=== PATIENT | female | born 1930 | race Caucasian/White ===

== ENCOUNTER 2016-11-27 11:30 | Inpatient (IN) | payer MEDICARE, BC ==
[~2016-11-27] VITALS: Ht 152.4 cm; Wt 54.4 kg
--- NOTE | ~2016-11-27 | DS ---
PATIENT'S NAME: ROBERT PERALTA [facility] AGE: 86 Y [address] ROOM: [id number] [place], [place] [address] LOCATION: [facility] ADMIT DATE: 11/27/2016 Discharge Summary DISCHARGE DATE: 12/05/2016 FAMILY PHYSICIAN: Evelyn Lira MD ATTENDING PHYSICIAN: Nav Conrad FINAL DIAGNOSES: 1. Right femoral neck fracture, status post right hip hemiarthroplasty. 2. Hypertension. 3. Hypothyroidism. 4. Dyslipidemia. 5. Atrial fibrillation with rapid ventricular response. 6. Left posterior cerebral artery infarct. 7. Acute blood loss anemia. 8. Unstable gait. Please see the history and physical dictated by Dr. Conrad for details of admission. In short, the patient had a fall landing on her right hip. EMS did take her to the [facility] and there they found that she had a right femoral neck fracture. LABORATORY DATA: On admission, sodium 140, discharge 139. Potassium on admission 4.3, got as low as 3.2 and at discharge was 4.1. BUN on admission was 34, discharge 11. Creatinine on admission was 0.9, discharge 0.6. Cholesterol was 112, HDL 34, LDL 63. White blood cell count on admission was 9.2, hemoglobin was 11.6, hematocrit 34.9, and platelet count 171. PTT 24, prothrombin time 10.5, INR of 1. Urinalysis had moderate bacteria on admission. Urine culture was no growth. Hemoglobin on admission was 11.6, got as low as 8.1, and at discharge 8.2. Chest x-ray on admission did not show any acute process. MRI of the brain on December 01 did show acute to subacute left posterior cerebral artery distribution infarct with suspected petechial hemorrhage. She had confluent small vessel ischemic changes. CARDIOVASCULAR DATA: Echocardiogram showed that the LV function was 60% to 65%. Left atrium was mildly dilated. HOSPITAL COURSE: The patient was admitted with the right femoral neck fracture. She was seen and evaluated and felt to be a candidate for surgery. The patient was placed n.p.o. and was initially seen by Dr. Stoll. Dr. Murry did see the patient on the and felt she was stable for surgery, PATIENT'S NAME: ROBERT PERALTA [facility] AGE: 86 Y [address] ROOM: [id number] [place], [place] [address] LOCATION: [facility] ADMIT DATE: 11/27/2016 Discharge Summary DISCHARGE DATE: 12/05/2016 FAMILY PHYSICIAN: Evelyn Lira MD ATTENDING PHYSICIAN: Nav Conrad and she did proceed to surgery. At that time, her blood pressures were monitored. Postoperatively, she was admitted back to the floor without any difficulty. She did initially have some lower blood pressures, and parameters were placed on her blood pressure medicines. She did develop migraine headache postoperatively with some visual changes. She then did go into atrial fibrillation with a rapid ventricular response. She was given IV digoxin. She was given IV fluids to help try and bring her heart rates under better control. An echocardiogram was obtained. Her visual field defects did continue, and an MRI was obtained. The MRI did show subacute/acute posterior cerebral artery infarction. She was seen by Neurology. Dr. Hopper did see her. Her heart rate did continue to fluctuate. She did require IV amiodarone drip. We also did have to use Cardizem to help control the heart rate. Eventually, the heart rate slowed and did convert to sinus rhythm. The patient was placed on oral beta-blockers as well as oral amiodarone. Adjustments were made in the medications. It was felt that she was stable and could be transferred to rehab. Neurology did feel that she could potentially be started on long-term anticoagulation in 7-10 days. DISCHARGE INSTRUCTIONS: She is to have a regular diet. She is to see Dr. Cheng one month after discharge and Dr. Murry to see 2 weeks postop. The patient is weightbearing as tolerated with hip dislocation precautions. CT scan of the brain is ordered for Friday, December 03, to make sure that there is no worsening of her stroke or any worsening of bleeding. She is to have a Mepilex dressing on. MEDICATIONS: Include: 1. Allopurinol 300 mg daily. 2. Amiodarone 200 mg twice daily. 3. Vitamin C 500 mg daily. 4. Aspirin 81 mg daily, which will stop when Eliquis is started. 5. Lipitor 40 mg daily. 6. Os-Luis 500 mg daily. 7. Vitamin D 400 units daily. 8. Vitamin B12, 500 mcg daily. 9. Lovenox 40 mg subcu for DVT prophylaxis. This will stop when the Eliquis is started. 10. Synthroid 25 mg daily. 11. Vitamin A 10,000 units daily. 12. Vitamin E 400 units daily. 13. Extra Strength Tylenol 500 mg 1-2 every 6 hours. 14. [place] 5/325 one to two every 4 hours as needed. 15. Milk of magnesia 30 mL as needed. 16. Metoprolol 50 mg twice daily. Hold if her heart rate is less than 50 or systolic blood pressure less than 100. 17. Systane eyedrops 1 drop to both eyes twice daily as needed for dry eyes. PATIENT'S NAME: ROBERT PERALTA [facility] AGE: 86 Y [address] ROOM: [address] [address] LOCATION: [facility] ADMIT DATE: 11/27/2016 Discharge Summary DISCHARGE DATE: 12/05/2016 FAMILY PHYSICIAN: Evelyn Lira MD ATTENDING PHYSICIAN: Nav Conrad 18. Eliquis 5 mg twice daily. Starting on December [address] scan on December 07 is stable. PROGNOSIS: Overall prognosis at discharge was good. JACINTO MCCRACKEN MD LAW/modl /[id number] d: 12/05/165 t: 12/11/16 1115, DISCHARGE SUMMARY
--- NOTE | ~2016-11-27 | CON ---
PATIENT'S NAME: ROBERT DE LA CRUZ [facility] AGE: 86 Y [address] ROOM: [id number] [place], [place] [address] LOCATION: [facility] ADMIT DATE: 11/27/2016 Consultation DISCHARGE DATE: FAMILY PHYSICIAN: Evelyn Lira MD ATTENDING PHYSICIAN: Nav Conrad DATE OF CONSULTATION: 12/02/2016 REFERRING PHYSICIAN: VIRGINIA GRANT MD HISTORY OF PRESENT ILLNESS: Ms. De La Cruz is a very pleasant 86-year-old female patient who lives alone in [place], [place]. She says that she was in her usual state of health when she was in her garage and her pet dog was trying to get away and she went to go dive on to the dog to catch her, but she landed squarely on the concrete floor and broke her right femur. The patient was taken to the hospital in [place] and was transferred here for hip fracture surgery. At no time did the patient say that she had a problem with her vision or with weakness of her limbs. She denied any lightheadedness or any focal headache and she denied hitting her head or injuring her neck. X-rays upon workup here revealed a right femoral neck fracture. On the 28 of November under the lead of Dr. Murry, the patient underwent a right hip hemiarthroplasty that was essentially noneventful. The patient did maintain good mentation after the surgery, but it was noted that the patient had a new onset of rapid atrial fibrillation with rapid ventricular rate; and also, she was noted to be a bit hypotensive. The patient was thus started on amiodarone and made some good improvement with her blood pressure management with simple IV fluids. The patient herself denied any palpitations, chest pain, and no dizziness or vomiting 48 hours to the time of my seeing the patient on the . She noted that she did have a bit of visual field deficit on her right visual field. She is an avid reader and was trying to read her newspaper and noticed that she could not follow along the page when she tried to gaze towards the right. She reported that over the past 24 hours there was a dramatic improvement in her vision and she was doing much better. With her vision changes of new- onset, she had a MRI of the brain to rule out any possibility of a sudden stroke and the MRI actually did find evidence for a left COTTON BALL BAGGER posterior cerebral artery territory stroke. This involved clearly the occipital lobe and her visual field was clearly affected on her right due to this left COTTON BALL BAGGER infarct. There was some evidence of extension of this COTTON BALL BAGGER infarct into the temporal region on the left and perhaps a bit of normal punctate hemorrhage that would be seen in most stroke syndrome. Actually, the patient is doing quite well. She says that her vision had been quite poor over short-period of about 12 to 24 hours, but has dramatically improved. She was noted to have a right visual field cut still present on exam, but she says this was greatly improved. She denied any problems with chewing or swallowing. She denied any headaches presently. She denied any facial numbness or limb numbness. She PATIENT'S NAME: ROBERT DE LA CRUZ [facility] AGE: 86 Y [address] ROOM: [address] [address] LOCATION: [facility] ADMIT DATE: 11/27/2016 Consultation DISCHARGE DATE: FAMILY PHYSICIAN: Evelyn Lira MD ATTENDING PHYSICIAN: Nav Conrad denied any weakness to her body. She states that she had been ambulating around during the course of the day and was feeling quite well. I told the patient that we were summoned to go over her history and make some suggestions based upon her now known atrial fibrillation in the setting of a stroke and the possibility that the patient would need anticoagulation. PRIOR MEDICAL HISTORY: She has a history of some mild hypertension, history of gout, for which being she is being maintained on allopurinol chronically, history of chronic low back pain. She denied any history of stroke. She denied any history of heart problems. She admits that she has been having some fatigability and possibly some dyspnea on exertion over the course of the year for which she summoned her primary care doctor to work her up for any arrhythmias, but no arrhythmia was found on her EKG. Hypothyroidism. HOME MEDICATIONS: Included: 1. Aspirin. 2. Lipitor. 3. Metoprolol. 4. Vitamin E. 5. Vitamin A. 6. Allopurinol. 7. Calcium carbonate. 8. Cyanocobalamin. 9. Thyroxine. SOCIAL HISTORY: The patient states that she lives alone. She has 5 cats and a dog. She has a total of 5 children and a history of father with COPD and mother of an unknown cause at the age of 84. She denied any history of smoking or alcohol use. She says that she is quite active. She tries to get out of the home everyday to do walking. She does her own chores such as shopping and her own money management. REVIEW OF SYSTEMS: This is an 86-year-old quite healthy female who denies that she had passed out or had any problems with her vision prior to falling on concrete in her garage. She says this was completely accidental in an effort to grab her dog. She was transferred here from [facility] with evidence of right femur fracture and had surgery here on the . After surgery, the patient developed rapid ventricular rate in association with atrial fibrillation. Very soon after, she developed a right oscar-visual field deficit, that is now improved, but is still present and the patient was unable to read most of the words on her newspaper in her right visual field, but this is now improving. PATIENT'S NAME: ROBERT DE LA CRUZ [facility] AGE: 86 Y [address] ROOM: [id number] [place] [id number] LOCATION: [facility] ADMIT DATE: 11/27/2016 Consultation DISCHARGE DATE: FAMILY PHYSICIAN: Evelyn Lira MD ATTENDING PHYSICIAN: Nav Conrad She denied having any weakness or numbness, any problems with chewing and swallowing. There are no problems with walking. She was found on MRI to have a new-onset of a left COTTON BALL BAGGER infarction likely in the setting of a paroxysmal atrial fibrillation. PHYSICAL EXAMINATION: GENERAL: This is a healthy-appearing 86-year-old female in no acute distress, answered all questions appropriately, she had good insight and good judgment and excellent knowledge of her medical history. VITAL SIGNS: Pulse of 76 and irregular, respiration rate 15, blood pressure 111/55, temperature is 36.7, and her weight is 54 kg. NEUROLOGIC: Cranial nerves 2 through 12 were intact. Her visual call were fine on the left visual field; however, there was a visual field cut on the right-side as the patient gazed about 15 degrees toward the right of her nose and she could not count as she did not have the ability for finger count interpretation. She says that this has surprisingly improved over the past 24 hours. There is no evidence of any pronator drift. She had normal power of the bilateral upper and lower extremities. Normal tone. The patient ambulated for me around the room and did not show any evidence of ataxic gait. Speech was clear and nonslurred. She answers all questions appropriately and she did not demonstrate any aphasia. Reflexes were +2 at the biceps, triceps, brachioradialis, patellar reflexes, and ankle jerk reflexes were intact at +1. She was negative Romberg. IMPRESSION: Ms. De La Cruz is an 86-year-old female patient who after falling on the ground fracturing a right hip and having a successful surgery was noted to have a right field cut. She was subsequently found to have a new stroke into the left posterior cerebral artery territory. Clearly in the setting of new-onset of atrial fibrillation, this is likely the reason the patient had an acute stroke. Most new-onset of atrial fibrillation would not result in a new stroke per se thus I do believe that the patient likely had paroxysmal atrial fibrillation even before coming to this hospital, but it was probably brought out during the surgery, which is not too uncommon. She did report periods of time during the past 8 months that she would have to go to her doctor because she suddenly felt shortness of breath that would come out of the blue. The patient had a workup with her primary care doctor, but no evidence of atrial fibrillation was found, but clearly by history, she had runs of atrial fibrillation I believe. Therefore, this is not a first time event for atrial fibrillation. I do recommend that the patient be placed on anticoagulation. She is at risk for having recurrent strokes. Risks are based upon her advanced age, the known existence of a stroke already, a dilated right atrium that was seen on the echocardiogram, the nature of paroxysmal atrial fibrillation, which is likely a greater risk for embolic strokes. Since the patient just had a recent stroke here in the hospital, there is generally not PATIENT'S NAME: ROBERT DE LA CRUZ [facility] AGE: 86 Y [address] ROOM: [id number] [place], [place] [address] LOCATION: [facility] ADMIT DATE: 11/27/2016 Consultation DISCHARGE DATE: FAMILY PHYSICIAN: Evelyn Lira MD ATTENDING PHYSICIAN: Nav Conrad need to [place] for anticoagulation. The reason for this is embolic strokes would take some time to redevelop thus we would ask that anticoagulation be held for at least 10 days. The maximal hemorrhagic conversion poststroke would usually be in the 7 to 10 day period. The patient will likely be here in our hospital for rehabilitation. I would see the patient on followup and rehab and start the patient on anticoagulation. I would likely recommend a newer anticoagulation medications such as Eliquis or Pradaxa as she is healthy and does not have any renal issues. I believe the patient is making a good recovery already with her visual call and I do not suspect that the patient would be at an increased risk for recurrent stroke over the next few weeks and demand that we start anticoagulation immediately. Again, I will follow up with the patient during her rehabilitation stay here in the hospital. MD KHADRA MOY/billyl /[id number] d: 12/04/16 0048 t: 01/07/17 1520, CONSULTATION REPORT
--- NOTE | ~2016-11-27 | ECHO ---
Transthoracic Echocardiography Report (TTE) Demographics Patient Name ROBERT PERALTA Date of Study 12/01/2016 J Patient Number [id number] Visit Number [id number] Date of 1930 Room Number [id number] Gender Female Number Age 86 year(s) Referring Lul Rodríguez CRNA Shade Cutter Roxana Chopra RD, Physician RVT Physician Interpreting Skylar Bradford Messenger Copy Physician Supervising Ordering Skylar Bradford MD/MLP Physician Nurse Stress Assembler Type Bar And Segment Conclusions Contractility Score Summary Normal Left Ventricular contractility was noted. Summary The estimated left ventricular ejection fraction is 60-65%. Moderately dilated right ventricle. The left atrium is mildly dilated by LA volume index measurement. The right atrium is severely dilated. Mild mitral regurgitation by color Doppler. Mild mitral annular calcification. There is mild pulmonary hypertension. The estimated pulmonary pressure (RVSP) is 45 mmHg. Moderate tricuspid regurgitation by color Doppler. Mild pulmonic valve regurgitation by color Doppler. The pulmonic and aortic valves are not well visualized. Procedure Type of Study TTE procedure:2D Echocardiogram. Procedure Date Date: 12/01/2016 Start: 12:32 PM Study Location: Inpatient Portable Technical Quality: Fair Indications:New onset a-fib. Additional Indications:strok Appropriate Use Criteria: 9 Patient Status: Routine Rhythm: Within normal limits HR: 78 bpm BP: 95/51 mmHg M-Mode/2D Measurements LV Diastolic Dimension: 3.79 cm LV Systolic Dimension: 2.25 cm LV Septum Diastolic: 0.86 cm LV PW Diastolic: 0.78 cm AO Root Dimension: 3.1 cm Cardiac Output: 5.69 l/min AV Cusp Separation: 0.9 cm RV Diastolic Dimension: 3.13 cm LA volume: 80 ml IVC Inspiration: 1.27 cm LVOT: 2.2 cm RV Base: 5.17 cm LVOT VTI: 19.2 cm RV Mid: 2.37 cm LV Stroke volume: 72.95 ml TAPSE: 2.02 cm TDI-S': 14 cm/s Doppler Measurements AV Peak Velocity: 1.85 m/s MV Peak E-Wave: 1.1 m/s AV Peak Gradient: 13.69 mmHg MV Peak A-Wave: 0.8 m/s AV Mean Gradient: 8 mmHg MV E/A Ratio: 1.37 LVOT Peak Velocity: 0.97 m/s MV P1/2t: 47 msec TR Gradient:71.91 mmHg PV Peak Velocity: 0.99 m/s Estimated RAP:3 mmHg PV Peak Gradient: 3.94 mmHg Estimated RVSP: 75 mmHg Estimated PASP: 74.91 mmHg E' Septal Velocity: 0.09 m/s A' Septal Velocity: 0.08 m/s E' Lateral Velocity: 0.1 m/s A' Lateral Velocity: 0.05 m/s MV E/E' Ratio: 7.9 Findings Left Ventricle The estimated left ventricular ejection fraction is 60-65%. Right Ventricle Moderately dilated right ventricle. Left Atrium The left atrium is mildly dilated by LA volume index measurement. Right Atrium The right atrium is severely dilated. Mitral Valve Mild mitral regurgitation by color Doppler. Mild mitral annular calcification. Aortic Valve The aortic valve is moderately sclerotic. Not well visualized Tricuspid Valve There is mild pulmonary hypertension. The estimated pulmonary pressure (RVSP) is 45 mmHg. Moderate tricuspid regurgitation by color Doppler. Pulmonic Valve Mild pulmonic valve regurgitation by color Doppler. The pulmonic valve is not well visualized. Pericardial Effusion No evidence of pericardial effusion. Miscellaneous Visualized portions of the aortic root and ascending aorta appear normal in size. Pleural Effusion No evidence of pleural effusion. Contractility Score LV regional wall motion:(0-Non visualized 1-Normal 2-Hypokinesis 3-Akinesis 4-Dyskinesis 5-Aneurysm) Signature dtt: CHI QUINN dtd: 12/01/16 1232 Physician Self Edit
--- NOTE | ~2016-11-27 | HP ---
PATIENT'S NAME: [facility] AGE: 86 Y [address] ROOM: [id number] [place], [place] [address] LOCATION: G3N ADMIT DATE: 11/27/2016 History & Physical DISCHARGE DATE: FAMILY PHYSICIAN: PHYSICIAN, UNKNOWN ATTENDING PHYSICIAN: Nav Conrad DATE OF SERVICE: CHIEF COMPLAINT: Right hip fracture. HISTORY OF PRESENTING ILLNESS: This 86-year-old white female with previous history of hypertension, hyperlipidemia, and osteoporosis was transferred to [facility] from [place] with hip fracture, which occurred as the result of a fall at her home this morning. Briefly, she had stepped down into her garage shortly after 6:00 a.m. this morning to try to shoo her cat into the house. She lost her balance falling awkwardly onto her right side. She cannot relate exactly how she fell, but is certain that she did not lose consciousness. She landed on her right hip and had pain immediately. She denies hitting her head. There were no other injuries associated with the incident. She was unable to rise to a stand, but did crawl back into her house by scooting on her back and posterior. She was unable to reach the telephone, but a engraving supervisor arrived at around 7:00 a.m., no more than 45 minutes after she fell. EMS services were dispatched, and she was taken to the [facility]. On her arrival there, x-rays demonstrated a right femoral neck fracture. On her arrival here, she complains of "mild" hip pain which was relieved with rest. She states that it is 7-8/10 when she moves. She did get some relief with fentanyl en route to the hospital here. She got morphine in [place], but feels that did not help her much. She denies headache. Denies dizziness or lightheadedness. No chest pain, shortness of breath, or abdominal pain. She has been in good health as of late. She eats and drinks normally. She denies any difficulty with chewing or swallowing. She stools regularly and stooled last yesterday. She voids without any problems. Denies dysuria, urgency, or hematuria. No numbness or tingling in her extremities or any other associated physical or constitutional complaints. ALLERGIES: CRESTOR, INDOCIN, AND SHELLFISH. PAST MEDICAL HISTORY: Illnesses: PATIENT'S NAME: [facility] AGE: 86 Y [address] ROOM: [id number] [place], [place] [address] LOCATION: [facility] ADMIT DATE: 11/27/2016 History & Physical DISCHARGE DATE: FAMILY PHYSICIAN: PHYSICIAN, UNKNOWN ATTENDING PHYSICIAN: Nav Conrad 1. Essential hypertension. 2. Gouty arthritis. 3. Hyperlipidemia. 4. Hypothyroidism. 5. Generalized osteoarthritis. 6. Spinal stenosis with chronic back pain, status post recent lumbar epidural steroid injection. CURRENT MEDICATIONS: 1. Allopurinol 300 mg p.o. daily. 2. Atenolol 50 mg half tablet p.o. daily. 3. Calcium 600/400 one tab p.o. daily. 4. Levothyroxine 25 mcg p.o. daily. 5. Lisinopril 30 mg p.o. daily. FAMILY HISTORY: Significant for COPD in her father. Mother lived to the age of 84 and from "arthritis." SOCIAL HISTORY: She is . She lives in [facility]. She has 5 children, who do not live nearby, but has a grandson who provides some social assistance. She has a very distant past history of smoking tobacco, less than 5 pack years, but has been quit for more than 40 years. She drinks alcohol only occasionally. REVIEW OF SYSTEMS: As per HPI. All other organ systems reviewed and are negative. OBJECTIVE: VITAL SIGNS: Temperature 97.2, pulse 72, respirations 16, blood pressure 117/69. GENERAL: She is frail, not ill-appearing, a little anxious but in no acute distress. SKIN: Supple, pink, warm, and dry. There are no obvious rashes. HEENT: Otherwise, normocephalic. Sclerae are nonicteric. Pupils are equal, round, and reactive to light and accommodation. Extraocular movements appear intact. Nasal turbinates normal in appearance. Oropharynx clear. Mucous membranes are pink and moist. NECK: Supple. No masses or adenopathy. No thyromegaly. No JVD. No carotid bruits are heard. CHEST: Chest wall is symmetrical. HEART: Regular with occasional extrasystoles. There is a grade 1-2/6 systolic ejection murmur. LUNGS: Diminished at the bases. No wheezes or crackles are heard. PATIENT'S NAME: [facility] AGE: 86 Y [address] ROOM: [address] [place], [place] [address] LOCATION: [facility] ADMIT DATE: 11/27/2016 History & Physical DISCHARGE DATE: FAMILY PHYSICIAN: PHYSICIAN, UNKNOWN ATTENDING PHYSICIAN: Nav Conrad ABDOMEN: Soft, nontender. Bowel sounds present. No mass. No splenomegaly. : Not done. RECTAL: Not done. EXTREMITIES: Display no significant clubbing, cyanosis, edema. NEUROLOGIC: She is a little hard of hearing, but there are no focal deficits. LABORATORY AND X-RAY DATA: From Murali, AP pelvis, single view, shows a right femoral neck fracture which appears to be 2-part with proximal displacement of the distal fragment and angulation. ASSESSMENT AND PLAN: 1. Right femoral neck fracture, status post ground-level fall. We will admit to inpatient care. I placed her on the hip pathway. I did discuss the case with Dr. Paris Stoll, Orthopedic Surgery, who reviewed the films. He will evaluate her and discuss operative options with her. She indicated a desire to proceed with operative intervention. We will provide supportive cares and clinical monitoring and symptomatic measures with IV fentanyl for relief of pain. She can have [place] as an alternative if needed. We will use Zofran for relief of nausea. We will get some preliminary laboratory studies including CBC, renal panel, PT, PTT, EKG, and chest x-ray and follow up on those when the results are known. 2. Essential hypertension, appears to be adequately controlled. We will monitor the trend and make adjustments as necessary. 3. Osteoarthritis, generalized with degenerative disk disease and lumbar spinal stenosis. Clinically stable. We will encourage immobilization as soon as feasible. We will manage symptomatically. 4. Hypothyroidism, clinically stable and adequately treated with levothyroxine. 5. Hyperuricemia. Plan to continue with allopurinol. She does not have any evidence for active synovitis. 6. Hyperlipidemia, historically controlled. Plan to continue clinical follow up with her primary care provider. 7. Deep venous thrombosis prophylaxis. We will utilize foot pumps at least until plans for surgery can be delineated. Otherwise, we will plan to follow the VTE protocol. MD EKATERINA NORMAN/anderson PATIENT'S NAME: [facility] AGE: 86 Y [address] ROOM: [place] [address] LOCATION: [facility] ADMIT DATE: 11/27/2016 History & Physical DISCHARGE DATE: FAMILY PHYSICIAN: PHYSICIAN, UNKNOWN ATTENDING PHYSICIAN: Nav Conrad /[id number] D: [id number] T: [id number] HISTORY & PHYSICAL
--- NOTE | ~2016-11-27 | OR ---
PATIENT'S NAME: ROBERT DE LA CRUZ [facility] AGE: 86 Y [address] ROOM: [place] [address] LOCATION: [facility] ADMIT DATE: 11/27/2016 OR/Procedure Report DISCHARGE DATE: FAMILY PHYSICIAN: Evelyn Lira MD ATTENDING PHYSICIAN: Nav Conrad SURGEON: Nabor Murry MD WATCH ASSEMBLY INSTRUCTOR: Dima Stoll PA-C. DATE OF PROCEDURE: 11/28/2016 PREOPERATIVE DIAGNOSIS: Right displaced femoral neck fracture. POSTOPERATIVE DIAGNOSIS: Right displaced femoral neck fracture. PROCEDURES PERFORMED: Right hip hemiarthroplasty. ANESTHESIA: General endotracheal anesthesia. FLUIDS: See Anesthesia report. ESTIMATED BLOOD LOSS: See Anesthesia report. SPECIMENS: None. COMPLICATIONS: None. DISPOSITION: Stable in PACU. COUNTS: All counts were correct. IMPLANTS: Brittany Accolade II right hip hemiarthroplasty, size 3 femur, size 44 outer diameter bipolar component, and 28-mm inner diameter head. INDICATIONS: Ms. De La Cruz is an 86-year-old female, who underwent the noted procedures above. The risks, benefits, and alternatives of pursuing a surgical intervention were discussed with the patient in detail. The patient elected to proceed with surgery. Informed consent was obtained. Anesthesia was consulted for their perioperative evaluation of the patient. I marked the patient's right lower extremity indicating the correct surgical site. OPERATIVE REPORT IN DETAIL: The patient was brought from the holding area to the Operating Room. A time-out was performed. General endotracheal anesthesia was administered. The patient was then positioned on the Stulberg positioners. The right lower extremity was then prepped and draped in a sterile fashion. PATIENT'S NAME: ROBERT DE LA CRUZ [facility] AGE: 86 Y [address] ROOM: [address] [address] LOCATION: [facility] ADMIT DATE: 11/27/2016 OR/Procedure Report DISCHARGE DATE: FAMILY PHYSICIAN: Evelyn Lira MD ATTENDING PHYSICIAN: Nav Conrad I then turned my attention to the right hip. I began with a posterior incision to the hip. The skin incision was carried through skin, subcutaneous tissue, and fascia down to the short external rotators. I used a Bovie electrocautery device to remove them. I then made the femoral neck cut using a saw. I then turned my attention to the hip joint. Using a corkscrew, I removed the femoral head. This was subsequently sized. I then began with a femoral canal finder to introduce an open intramedullary canal. I then broached sequentially up to a size 3 broach. I then trialed to a size 3 broach. A standard offset head and 45-mm outer diameter bipolar was used. The hip was taken through range of motion and deemed stable. All the trial componentry was removed. The final componentry was implanted into the joint, and the hip was surgically re-located. It was taken through range of motion. The hip range of motion was zero to approximately 140 degrees, with approximately 60 degrees of internal rotation prior to dislocation. The leg lengths measured were appropriate. The wound was then copiously irrigated with normal sterile saline solution via pulsatile lavage. I repaired the short external rotators and posterior capsule to the posterior aspect of the greater trochanter and bony tunnels using Ethibond suture. The hip again was taken through range of motion and found to be stable. I then used a #2 StrataFix barbed suture to approximate the deeper fascia, followed by 0 StrataFix suture to approximate the deeper subcutaneous tissue, followed by 0 Vicryl and 2-0 Vicryl suture to approximate the subcutaneous tissue. Prineo was used to approximate the skin. The patient was then transferred to the operating room table on the stretcher and placed supine. She was subsequently extubated. An abduction pillow was placed between the legs. There were no intraoperative complications noted. Of note, my PA, Dima Stoll PA-C, played an integral role in the intraoperative care of this patient. This included preoperative positioning, intraoperative expert retraction, and closing and dressing functions. IMPRESSION: The patient is status post the noted procedures above. PLAN: The patient will be weightbearing as tolerated with hip flexion PATIENT'S NAME: ROBERT DE LA CRUZ [facility] AGE: 86 Y [address] ROOM: [address] [place] [address] LOCATION: [facility] ADMIT DATE: 11/27/2016 OR/Procedure Report DISCHARGE DATE: FAMILY PHYSICIAN: Evelyn Lira MD ATTENDING PHYSICIAN: Nav Conrad precautions at 90 degrees on the right lower extremity. Physical Therapy and Occupational Therapy will be consulted for early ambulation and prevention of deconditioning. The hospitalist will continue to manage the patient's concomitant medical comorbidities. Postoperative DVT prophylaxis will be in the form of Lovenox. Postoperative pain control will be in the form of Percocet and IV morphine as needed for pain. Postoperative antibiotics will be administered per routine. Intraoperative antibiotics were administered for perioperative prophylaxis. I will continue to monitor the patient closely in the postoperative period. MD JOSE BANKS/modl /[id number] d: 11/29/16 0114 t: 11/29/16 1711, OPERATIVE SUMMARY
--- NOTE | ~2016-11-27 | PUL ---
PATIENT'S NAME: ROBERT PERALTA [facility] AGE: 86 Y [address] ROOM: [address] [address] LOCATION: GICU ADMIT DATE: 11/27/2016 Pulmonary DISCHARGE DATE: 12/05/2016 FAMILY PHYSICIAN: Evelyn Lira MD ATTENDING PHYSICIAN: Nav Conrad NAME OF PROCEDURE: Pulmonary Function Test DATE OF PROCEDURE: December 03, 2016 TECH: LISANDRO Weaver REASON FOR EXAM: Medication usage PROCEDURES PERFORMED: Spirometry with bronchodilator assessment. Measurement of maximum voluntary ventilation. Measurement of lung volumes. Measurement of diffusion capacity. RESULTS: Spirometry shows FVC was 2.28 liters, 126% of predicted. FEV1 was 1.42 liters, 108% of predicted, FEV1/FVC was 62, 86% of predicted. FSF50-89% was 0.64 liters/second, 80% of predicted. Maximum voluntary ventilation was 60 liters/minute, 84% of predicted. Post bronchodilator FVC was 2.43 liters, 135% of predicted. FEV1 was 1.65 liters, 126% of predicted. FEV1/FVC was 68%, 94% of predicted. NAS68-50% was 0.91 liters/second, 112% of predicted. There was a 16% change in FEV1 post bronchodilator. Lung volumes showed total lung capacity was 4.98 liters, 129% of predicted. Functional residual capacity was 3.12 liters, 128% of predicted. Residual volume was 2.63 liters, 150% of predicted. Diffusing capacity not adjusted for hemoglobin was 92% of predicted. The single breath alveolar volume was 3.37 liters, which is a poor estimate on the total lung capacity. PHYSICIAN INTERPRETATION: The flow volume loop pattern is obstructive. This data and a corresponding flow volume are most compatible with mild airflow obstruction, which does respond to an inhaled bronchodilator. There is evidence of mild hyperexpansion and moderate gas trapping. There is no gas transfer impairment. MD CHRISTY CARLTON/aye PATIENT'S NAME: ROBERT PERALTA [facility] AGE: 86 Y [address] ROOM: [address] [address] LOCATION: GICU ADMIT DATE: 11/27/2016 Pulmonary DISCHARGE DATE: 12/05/2016 FAMILY PHYSICIAN: Evelny Lira MD ATTENDING PHYSICIAN: Nav Conrad /[id number] dtt: 12/12/16 1634 , ESTHER PEREZ dtd: 12/10/16 1445
--- NOTE | ~2016-11-27 | CON ---
PATIENT'S NAME: ROBERT PERALTA [facility] AGE: 86 Y [address] ROOM: [place] [address] LOCATION: GICU ADMIT DATE: 11/27/2016 Consultation DISCHARGE DATE: FAMILY PHYSICIAN: Evelyn Lira MD ATTENDING PHYSICIAN: Nav Conrad REFERRING PHYSICIAN: VIRGINIA GRANT MD Consult for Dr. Conrad. This pleasant 86-year-old lady who lives alone with her cat in her home and does have help for cleaning and help for some chores around the house. She is now referred for rehab evaluation, status post falling incident and suffered a right hip displaced fracture, status post hemiarthroplasty on 11/28/2016, details on record. PAST MEDICAL HISTORY: Past history of significance: 1. History of hypertension. 2. Gout with gouty arthritis. 3. Chronic low back pain, status post epidural injection, few. At the present time, she is alert, oriented. Vitals are as follows: Blood pressure 109/56, temperature 98.2, pulse 74, respirations 18. She is 5 feet tall and weighs 54.4 kg. Now, she can follow instructions without any difficulty. NEUROLOGICAL: She is intact and within normal limits. Can move bilateral upper and left lower extremity freely; however, right lower extremity at the hip she has pain and she tries to be careful. Deep tendon reflexes are present and equal throughout. She has good bowel and bladder control. She is at the present time, complaining of minimal pain at rest. She is at the present time with the following medications. 1. Metoprolol. 2. Aspirin. 3. Lipitor. 4. NaCl 0.9%. 5. Vitamin E. 6. Vitamin A. 7. Allopurinol. 8. Calcium carbonate. 9. Cholecalciferol. 10. Cyanocobalamin. PATIENT'S NAME: ROBERT PERLATA [facility] AGE: 86 Y [address] ROOM: [id number] [place], [place] [address] LOCATION: GICU ADMIT DATE: 11/27/2016 Consultation DISCHARGE DATE: FAMILY PHYSICIAN: Evelyn Lira MD ATTENDING PHYSICIAN: Nav Conrad 11. Thyroxine. 12. Fentanyl. 13. Zofran. 14. MOM. 15. Tylenol. 16. [place]. 17. Lovenox. 18. KCl. ASSESSMENT AND PLAN: She can ambulate up to 30 feet with front-wheeled walker slowly and with minimum to moderate assist. I feel this lady will benefit from intensive rehabilitation of about 2 weeks aiming to discharge on modified independence. All the above was explained to her. She verbalized understanding and agreement. Thank you for this referral. MD ANURAG HAN/modl /[id number] d: 12/02/16 1117 t: 12/02/16 1241, CONSULTATION REPORT
--- NOTE | ~2016-11-27 | CON ---
PATIENT'S NAME: ROBERT DE LA CRUZ [facility] AGE: 86 Y [address] ROOM: [id number] [place], [place] [address] LOCATION: [facility] ADMIT DATE: 11/27/2016 Consultation DISCHARGE DATE: FAMILY PHYSICIAN: Evelyn Lira MD ATTENDING PHYSICIAN: Nav Conrad REFERRING PHYSICIAN: VIRGINIA GRANT MD REASON FOR CONSULT: Atrial fibrillation with rapid ventricular rate, hypotension. HISTORY OF PRESENT ILLNESS: Ms. De La Cruz is a pleasant, 86-year-old female with previous history of hypertension, hyperlipidemia, and osteoporosis who was transferred initially from [facility] with hip fracture for higher level of care. According to the patient, she was trying to prevent her cat from going out of the garage. She was trying to catch her, and in the process, she fell, and she could not get up. She also developed pain in the right hip. She crawled back into the house, and subsequently her cleaning lady came around 7 a.m., and she called 911, and she was taken to [facility] where she was found to have fracture of right femoral neck. The patient denied any loss of consciousness. The patient denied any palpitations. Subsequently, she had surgery for right femoral neck fracture. Since the time of surgery, the patient stated that she has noticed diminishment of vision on the left side. She also complained of feeling as if shadows were floating when she watches TV, and she is not able to read. Today, she was found to be in atrial fibrillation with rapid ventricular rate with hypotension. Her blood pressure improved following IV fluids. The patient denied any palpitations. No history of chest pain. No history of loss of consciousness. Cardiology was consulted in view of atrial fibrillation with rapid ventricular rate and low blood pressure. REVIEW OF SYSTEMS: The patient complained of altered vision in both eyes as described above. No history of nausea, vomiting, or diarrhea. The patient stated that she has been constipated since the time of surgery. No history of fever. No history of cough or expectoration. She has previous history of migraines. Complained of pain in the right leg which is better since the time of surgery. Review of other systems was essentially negative. PAST MEDICAL HISTORY: Hypertension, migraine, gouty arthritis, hyperlipidemia, hypothyroidism, generalized osteoarthritis, and spinal stenosis. CURRENT MEDICATIONS: As in JUL. SOCIAL HISTORY: PATIENT'S NAME: ROBERT DE LA CRUZ [facility] AGE: 86 Y [address] ROOM: [id number] [place], [place] [address] LOCATION: [facility] ADMIT DATE: 11/27/2016 Consultation DISCHARGE DATE: FAMILY PHYSICIAN: Evelyn Lira MD ATTENDING PHYSICIAN: Nav Conrad The patient lives by herself with 5 cats. FAMILY HISTORY: Her father had COPD, and her mother lived to the age of 84 and from unknown cause. PERSONAL HISTORY: She is a nonsmoker and occasionally has alcoholic beverage. PHYSICAL EXAMINATION: GENERAL: She is awake, alert, and oriented. VITAL SIGNS: Her pulse rate is 110 to 118 beats per minute on monitor, blood pressure is 105/58 mmHg, and respiratory rate 18. HEENT: Her head is atraumatic and normocephalic. Her vision is diminished on the left side. Her oral mucosa is moist. NECK: No significant jugular venous distention is present. CARDIOVASCULAR: S1 and S2 are audible. They are irregular in rate and rhythm. RESPIRATORY: Bilateral vesicular breath sounds are audible. ABDOMEN: Soft and nontender. Bowel sounds are present. EXTREMITIES: Left lower extremity shows no edema. Right lower extremity is in support. NEUROLOGIC: Diminished vision on the left side. The patient is not able to explain her diminished vision very well. She is able to move all 4 extremities. SKIN: Warm and dry. LABORATORY DATA: Sodium 136, potassium 3.7, chloride 104, CO2 of 25, glucose 106, calcium 7.7, BUN 17, and creatinine 0.7. AST 25 and ALT 16. Magnesium 2.2. White blood cell count 5.3; hemoglobin 8.1, her hemoglobin prior to surgery was 11.6; and platelet count 134. EKG done today showed atrial fibrillation with ventricular rate of 121 beats per minute. Nonspecific ST-T wave changes were seen. Her EKG prior to surgery on the showed sinus rhythm at 66 beats per minute. ASSESSMENT AND PLAN: 1. Atrial fibrillation with rapid ventricular rate. The patient received 250 mcg of digoxin. The patient was on atenolol. We will start the patient on low-dose beta blockers depending on her blood pressure and continue to monitor on telemetry. Anticoagulation was considered; however, in view of visual changes, she is undergoing MRI of the brain to look for any evidence of stroke. Also, her hemoglobin has dropped since the time of surgery. Depending on MRI findings, we will consider long-term anticoagulation if no recent acute cerebrovascular accident if okay with Orthopedics as well. We will also obtain 2D echocardiogram to evaluate left ventricular function. PATIENT'S NAME: ROBERT DE LA CRUZ [facility] AGE: 86 Y [address] ROOM: [address] [address] LOCATION: [facility] ADMIT DATE: 11/27/2016 Consultation DISCHARGE DATE: FAMILY PHYSICIAN: Evelyn Lira MD ATTENDING PHYSICIAN: Nav Conrad 2. Hypotension, possibly related to dehydration as well as atrial fibrillation with rapid ventricular rate. Her blood pressure has improved since she was given IV fluids. We will monitor blood pressure. Lisinopril has been discontinued due to low blood pressure. 3. Right hip fracture. Management per Orthopedics. 4. Hypothyroidism. Management per hospitalist team. We will follow the patient along with you. Thank you for allowing us in taking part in the care of this pleasant patient. The plan of care was discussed with Nursing. MD MELISSA LAKHANI/anderson /[id number] d: 12/01/16 1340 t: 12/06/16 1626, CONSULTATION REPORT
--- NOTE | ~2016-11-27 | CON ---
PATIENT'S NAME: ROBERT PERALTA [facility] AGE: 86 Y [address] ROOM: [address] [place], [place] [address] LOCATION: [facility] ADMIT DATE: 11/27/2016 Consultation DISCHARGE DATE: FAMILY PHYSICIAN: PHYSICIAN, UNKNOWN ATTENDING PHYSICIAN: Nav Conrad REFERRING PHYSICIAN: VIRGINIA GRANT MD HISTORY OF PRESENT ILLNESS: Dr. Odin Conrad has requested that I provide an inpatient consultation on this 86-year-old female, transferred here from [place] after she had been diagnosed with a right femoral neck fracture. The patient fell this morning while chasing her cat. She landed on her right hip and was unable to get up because of right hip pain. She "scooted across the floor" to call for help. She denies pain elsewhere as a result of the fall. She denies head trauma or loss of consciousness. She denies history of preexisting pain in the right hip. At baseline, she lives independently. She uses a cane intermittently because of balance (not because of preexisting hip pain). The patient was transported to the [facility] [place] [facility] by ambulance where she was diagnosed with a right femoral neck fracture. MEDICATIONS ON ADMISSION: 1. Levothroid. 2. Tenormin. 3. Zyloprim. 4. Prinivil. 5. Vitamin B12 supplement. 6. Vitamin A supplement. 7. Vitamin C supplement. 8. Vitamin E supplement. 9. Calcium supplement. 10. Potassium supplement. ALLERGIES: CRESTOR, SHELLFISH. ACTIVE MEDICAL PROBLEMS: Hypothyroidism. REVIEW OF SYSTEMS: She denies history of deep venous thrombosis. She denies pain in her other 3 extremities as a result of the fall. Radiographs: I reviewed outside radiographs from [facility] [place]. These demonstrate a displaced right femoral neck fracture. There is no hardware in the right hip. There is no lytic lesion. PATIENT'S NAME: ROBERT PERALTA [facility] AGE: 86 Y [address] ROOM: [id number] [place], [place] [address] LOCATION: [facility] ADMIT DATE: 11/27/2016 Consultation DISCHARGE DATE: FAMILY PHYSICIAN: PHYSICIAN, UNKNOWN ATTENDING PHYSICIAN: Nav Conrad PHYSICAL EXAMINATION: GENERAL: Alert, frail, slender elderly female who appears moderately anxious. She is in no acute distress. EXTREMITIES: The right lower extremity is shortened and slightly externally rotated versus the left. There is pain with passive range of motion of the right hip. There is no pain with passive range of motion of the left hip. There is no swelling or tenderness at either knee. She is able to actively dorsiflex and plantar flex the right ankle (with 3/5 motor strength in both directions). 1+ posterior tibial pulse on the right. There is no calf swelling, tenderness, or peripheral edema in either lower extremity. There are no active skin lesions or masses over the right hip. There is tenderness at the right greater trochanter. RECOMMENDATIONS: I have discussed the operative and nonoperative options. I have recommended hemiarthroplasty. I have discussed the technical aspects of surgery as well as risks and limitations thereof. I have also discussed potential adverse sequelae of the injury itself. We have specifically reviewed risks and implications of infection, deep venous thrombosis, pulmonary embolism, mortality, pneumonia, neurovascular complications, wear, loosening, instability, leg length discrepancy, and potential need for conversion to total hip arthroplasty. The patient has been placed at bedrest. Mechanical DVT prophylaxis and incentive spirometry have been initiated. The patient has been admitted to the hospitalist service. We will proceed with surgery tomorrow morning (pending medical clearance and operating room availability). The patient and her family members understand that her surgery will most likely be performed by Dr. Nabor Murry. All their questions and concerns have been answered to their satisfaction. MD DAVID ARGUELLO/anderson PATIENT'S NAME: ROBERT PERALTA [facility] AGE: 86 Y [address] ROOM: [place] [address] LOCATION: [facility] ADMIT DATE: 11/27/2016 Consultation DISCHARGE DATE: FAMILY PHYSICIAN: PHYSICIAN, UNKNOWN ATTENDING PHYSICIAN: Nav Conrad /[id number] CC: Nav Conrad MD d: 11/28/16 0151 t: 12/13/16 0749, CONSULTATION REPORT
--- NOTE | 2016-11-27 14:34 | NUR ---
Patient is 86 yo female admitted this afternoon from [facility]. Patient lives in [place] by herself. she has 5 children. they all live in 5 different states patient. her closest relative is a grandson that lives in [place]. He was out of town today and 6-8 hours away. he is the one that helps her keep things up around the house she says. patient was taking her trash out through the garage today, her cat was going to get out and she threw herself in front of the cat to keep him in. she was unable to get up, had to crawl inside the house to get help. Patient was taken to the ER in [place] and is transferred here. Patient does have a catheter in place with clear yellow drainage noted. IV is infusing in right forearm without erythema or edema noted at site. Patient is very pleasant. she has 8 rings, 8 bracelets a watch and a pair of earrings. these were all removed by her, placed in a zip lock bag for her grandson to be able to take home with him when he comes to see patient. Education is given as documented. patient denies questions at this time. fall and allergy bracelets are on. red socks are on. pneumatics are on bilat feet. pt jaqueline well. Call light is within reach. denies needs, although she is having the shakes once in a while. denies feeling feverish or chilly. just shakey. Report is given to JASMINA Ahn.
[2016-11-27] MEDS ORDERED: LEVOTHROID (SY25 MCG PO (14:51)
[2016-11-27] MEDS ORDERED: ZYLOPRIM300 MG PO (14:52)
[2016-11-27] MEDS ORDERED: TENORMIN50 MG PO (14:52)
[2016-11-27] MEDS ORDERED: VITAMIN A10000 UNIT PO (14:53)
[2016-11-27] MEDS ORDERED: PRINIVIL (ZESTR20 MG PO (14:53)
[2016-11-27] MEDS ORDERED: VITAMIN B-12500 MCG PO (14:54)
[2016-11-27] MEDS ORDERED: ASCORBIC ACID500 MG PO (14:54)
[2016-11-27] MEDS ORDERED: VITAMIN D-40400 UNIT PO (14:55)
[2016-11-27] MEDS ORDERED: VITAMIN E400 UNI2 PO (14:55)
[2016-11-27] MEDS ORDERED: RED YEAST RICE600 MG PO (14:56)
[2016-11-27] MEDS ORDERED: FISH OIL 1,0001 EACH PO (14:56)
[2016-11-27] MEDS ORDERED: OSCAL500 MG PO (14:56)
[2016-11-27] MEDS ORDERED: POTASSIUM99 M1 PO (14:57)
[2016-11-27 15:35] LABS: BASOPHIL % 0.3 %; EOSINOPHIL % 0.1 %; HEMATOCRIT 34.9 % (30.0-46.0); HEMOGLOBIN 11.6 g/dL (10.0-15.0); IMMATURE GRANULOCYTE % 0.4 %; LYMPHOCYTE % 10.6 %; MCH 32.8 pg (27.0-34.0); MCHC 33.2 gm/dL (32.0-36.5); MCV 98.6 fl (83.0-98.0); MONOCYTE # 0.5 K/uL (0.0-1.0); MONOCYTE % 5.2 %; MPV 9.2 fl (9.4-12.4); NEUTROPHIL # (ANC) 7.7 K/uL (1.8-7.8); NEUTROPHIL % 83.4 %; NRBC % 0 /100WBC (0-0.00); PLATELET COUNT 171 K/uL (150-450); RBC 3.54 M/uL (3.00-5.00); RDW-CV 13.1 % (11.9-14.6); WBC 9.2 K/uL (4.0-11.0)
[2016-11-27 15:45] LABS: PROTIME 10.5 SECONDS (9.8-11.4); PTT 24 SECONDS (25-32)
[2016-11-27 15:50] LABS: ALBUMIN 3.7 gm/dL (3.5-5.0); ANION GAP 12.3 (10.0-19.0); CALCIUM 8.7 mg/dL (8.5-10.5); CREATININE 0.9 mg/dL (0.5-1.1); PHOSPHORUS 3.5 mg/dL (2.5-4.9); POTASSIUM 4.3 mMol/L (3.7-5.1)
[2016-11-27 16:39] LABS: BILIRUBIN URINE NEGATIVE (NEGATIVE); BLOOD URINE 150 /UL (NEGATIVE); COLOR URINE YELLOW (YELLOW); GLUCOSE URINE NEGATIVE (NEGATIVE); KETONE URINE 15 mg/dL (NEGATIVE); LEUKOCYTES URINE 100 /UL (NEGATIVE); NITRITE URINE NEGATIVE (NEGATIVE); PROTEIN URINE 15 mg/dL (NEGATIVE); SPEC GRAVITY URINE 1.025 (1.003-1.035); TURBIDITY URINE CLEAR (CLEAR); UROBILINOGEN URINE NORMAL (NORMAL)
--- NOTE | 2016-11-27 16:48 | NUR ---
Pt admitted from [facility] with fractured Rt hip. Rt leg shortened and rotated inward. Edema of Rt hip. Had MS total 8 mg and fentanyl 100 mcg prior to admit. Little pain when admitted and then up to 5. [place] po at 1600. Pt shivery about 1600 so warm blankets on and helped. Pt eating as missed meals today. Aparicio clear yellow urine. Pt NPO after midnight. IV Rt forearm. Pt not yet seen by Dr Stoll. Pt has a few small scrapes Rt elbow and left knee. History of hypertension/ thyroid disease. Pt is on room air.
[2016-11-27 16:50] LABS: RENAL EPITH URINE NEGATIVE #/HPF (NEGATIVE)
[2016-11-27 16:52] LABS: BACTERIA URINE MODERATE (NEGATIVE); MUCUS URINE 2+ (NEGATIVE)
[2016-11-27 16:54] LABS: HYALINE CAST URINE 0-2 #/LPF (NEGATIVE)
--- NOTE | 2016-11-28 04:02 | NUR ---
Significant Event: Alert/oriented x3. [place] 1 tablet at 2133; Fentanyl 25 mcg IVP at 1836, 2019, 2134, 2318, 0304. Pain is better now from 8+/10 down to more comfortable 7/10. Positioned patient to her left side off her right hip, has refused to reposition since. Bilateral foot pumps. Aparicio patent - 975 mls yellow urine. Normal saline running 30 ml/hr in IV at right posterior forearm. Received phone order from Dr Benton for bolus 500 mls due to BP 93/49, retook after bolus completed - 112/57. NPO since midnight for surgery later today with Dr Castillo. Preop checklist started. Right leg shortened and rotated inward. Edema of right hip. Small scrapes to right elbow and left knee. Room air. Follow up:
--- NOTE | 2016-11-28 05:13 | NUR ---
At 0505, patient reported 0/10 for pain if she doesn't move.
--- NOTE | 2016-11-28 10:10 | NUR ---
Introduced self/role to patient, his grandson Ronni #[phone] and his friend Anita. Patients plan is to go to the [facility]. Her doctor is Evelyn Lira. Will check to see if they will even take over the weekend. Covered transportation options. Explained ambulance and that if it was medically needed we would fill out a form to submit to Medicare but can not guarantee payment. Voiced understanding. Added my name to her marker board. 1020 Called [facility] #[phone] and spoke to Jaimee. Will need to plan for a Friday admission. Faxed her info, surgery today. Placed a note on the chart about Friday discharge, packet started, orders on the chart, informed charge nurse Anabelle. 1310 Spoke to Anabelle with EMS about Friday transfer.
--- NOTE | 2016-11-28 15:41 | NUR ---
Significant Event: PT A&O x3, forgetful. VSS, on room air. Pain issues, fentanly 25mcg given frequently. PT NPO for OR this evening. Repositioned frequently. Mouth swabs offered, refused. Aparicio patent. IV patent. PT unhappy about waiting all day for surgery, family at bedside, upset about wait. Follow up:
[2016-11-29 05:27] LABS: HEMOGLOBIN 8.7 g/dL (10.0-15.0)
[2016-11-29 05:29] LABS: HEMATOCRIT 26.3 % (30.0-46.0)
--- NOTE | 2016-11-29 05:38 | NUR ---
Significant Event:Returned from OR @ 2119 to 3304. In PACU had 50 po, 1200 IV & EBL of 125 ml. For me had 180 po, IV 278 & from the mg 525. Forgetful, but reorients quickly. Has denied the need for pain meds. Did have 1 [place] @ 2100 in PACU & was nauseated for awhile, but no longer is. Has Mepilex dressing to her right hip. Has the pillow abductor in place. Repositions well. Denies any numbness or tingling to lower extremities. Able to move right foot well. IV @ tko.
--- NOTE | 2016-11-29 11:50 | NUR ---
Faxed updates following surgery to [facility]#[phone]
--- NOTE | 2016-11-29 16:03 | NUR ---
Significant Event: PT ALERT BUT FOEGETFUL AT TIMES. UP IN THE ROOM WITH 1 ASSIST. DOES WELL. HAD A MIGRAINE HEADACHE THIS MORNING AND INTO THE AFTERNOON. RESTED WEEL THIS AFTERNOON AND THE HEADACHE IS GONE OF 1600. NORCO AND TYLENOL GIVEN THIS AM. TORADOL ALSO GIVEN. ICE TO HIP. FAMILY IN THE ROOM THIS SHIFT. HICKS CATH REMAIN INTACT. MAY BE DC'D WHEN YOUR READY. Follow up:
--- NOTE | 2016-11-30 04:16 | NUR ---
Significant Event: A/O X 3, FORGETFUL. IV SALINE LOCKS INTACT X 2, FLUSHES. MEPILEX DRSGS RIGHT HIP DRY-INTACT. ICE BAG TO SITE. GAUZE DRSGS LEFT OUTER ANKLE INTACT FROM ABRASED AREA. SY HOSE OFF AT HS, BILATERAL FOOT PUMPS TO FEET. DENIES NUMBNESS OR TINGLING TO LOWER EXTREMITIES. LOW GRADE TEMP 99.6 AND 99.1 ORALLY. ENCOURAGE FLUIDS AND INCENTIVE USAGE. 600-1000 RANGE. LEG CLOUD ARCHITECT BETWEEN KNEES. HICKS CATHETER WAS REMOVED AT 2145 WITH 550ML URINE. AT 0310 2 ASSIST TO COMMODE WBAT GAITBELT-WALKER, VOIDED 200ML URINE. GOOD TOLERANCE UP. HAD NORCO TAB ONE AT 0139 FOR ANTICIPATED PAIN WHEN GOTTEN UP. WHEN NOT MOVING, DENIES PAIN. TENORMIN 25MG NOT GIVEN AT HS BP 102/64, HR 84. PARAMENTORS FOR BP. Follow up:
[2016-11-30 04:50] LABS: HEMATOCRIT 24.2 % (30.0-46.0); HEMOGLOBIN 8.2 g/dL (10.0-15.0)
--- NOTE | 2016-11-30 16:22 | NUR ---
Significant Event: Pt is alert, forgetful. Cooperative. Amb to BR with 1 assist, gaitbelt and walker, slightly unsteady. Sat in chair. Mepilex dressing c/d/i. [place] @ 0850. Foot pumps on. Abductor pillow between knees. Follow up:
[2016-12-01 03:05] LABS: ALBUMIN 2.3 gm/dL (3.5-5.0); ANION GAP 10.7 (10.0-19.0); CALCIUM 7.7 mg/dL (8.5-10.5); CREATININE 0.7 mg/dL (0.5-1.1); MAGNESIUM 2.2 mg/dL (1.8-2.6); POTASSIUM 3.7 mMol/L (3.7-5.1); TOTAL BILIRUBIN 0.4 mg/dL (0.0-1.5); TOTAL PROTEIN 5.4 g/dL (6.0-8.4)
[2016-12-01 05:16] LABS: BASOPHIL % 0.2 %; EOSINOPHIL # 0.1 K/uL (0.0-0.5); EOSINOPHIL % 1.5 %; HEMATOCRIT 23.7 % (30.0-46.0); HEMOGLOBIN 8.1 g/dL (10.0-15.0); IMMATURE GRANULOCYTE % 0.4 %; LYMPHOCYTE # 0.8 K/uL (0.8-4.0); LYMPHOCYTE % 14.6 %; MCHC 34.2 gm/dL (32.0-36.5); MCV 96.7 fl (83.0-98.0); MONOCYTE # 0.5 K/uL (0.0-1.0); MONOCYTE % 9.7 %; MPV 9.2 fl (9.4-12.4); NEUTROPHIL # (ANC) 3.9 K/uL (1.8-7.8); NEUTROPHIL % 73.6 %; NRBC % 0 /100WBC (0-0.00); RDW-CV 12.9 % (11.9-14.6); WBC 5.3 K/uL (4.0-11.0)
[2016-12-01 05:21] LABS: MCH 33.1 pg (27.0-34.0); PLATELET COUNT 134 K/uL (150-450); RBC 2.45 M/uL (3.00-5.00)
--- NOTE | 2016-12-01 05:21 | NUR ---
Significant Event: Night time blood pressure medication held. Later became hypotensive systolically in the 80's and heart rate up to 120's. MD notified EKG and fluids ordered. A-fibb with rapid ventricullar response, lateral ST abnormality. Gave a total of 1 L of NS bolus. Gave Digoxin at 0334. On telemetry. Held all blood pressure medication. Now running NS at 100ml/hr for 1 L then saline lock. On room air. CSM WNL. Dressing is clean, dry and intact. Voids without difficulty. Had a bowel movement. Abductor pillow. [facility] Friday. Follow up:
--- NOTE | 2016-12-01 12:59 | NUR ---
Pt is alert, forgetful @ times. Admitted with fx R) hip on 11/27. Had R) hip hemiarthroplasty on 11/28. CSM WNL. Mepilex dressing to R) hip c/d/i. Hip abductor pillow in place. Last night became hypotensive and tachycardia and went into afib. Had NS IV boluses, po digoxin @ 0334. Hgb 8.1 Has been voiding per bedpan. Last BM 12/01. Has hx migraines. Reported having a migraine postop, now has visual field deficits. Converted to NSR with rates in 70's @ 1110. Had head MRI without contrast. Echo completed. Son in [facility] spoke with Dr Mccarty so he is aware of situation. Dr Sun consulted & examined patient. Pt ID on ASA, lipitor, KCL.
--- NOTE | 2016-12-01 17:04 | NUR ---
Significant Event: PT TRANSFERRED FROM [address] [place] [address] TO ROOM 6227 AT 1330, VIA BED. THE PT LIVES AT HOME BY HERSELF. SHE FELL ON 11/27 AND SUSTAINED A R)HIP FRACTURE. ON 11/28 A R)HIP HEMIARTHROPLASTY WAS DONE. ABOUT 0100 THIS AM ON [address] [place] [address], THE PT WENT INTO A-FIB WITH RATES IN THE 120'S AND SBP'S IN THE 80'S. A LITER BOLUS OF IV FLUIDS WERE GIVEN AND A DOSE OF DIGOXIN. A HEAD MRI WAS DONE ON , WHICH SHOWED A STROKE. AN ECHO WAS ALSO DONE THIS MORNING. SINCE ARRIVAL TO THE FLOOR, PT HAS BEEN ALERT AND ORIENTED X3. FORGETFUL. PERRLA. STATES THAT SHE HAS HAD VISUAL DEFICITS AND A MIGRAINE SINCE SURGERY. BOTH EYES ARE BLURRY/DISTORTED. FOLLOWS COMMANDS. MODERATE STRENGTH IN UPPER EXTREMITIES; BILATERAL LOWER EXTREMITES ARE WEAKER. VOIDS PER BEDPAN. MEPILEX DRESSING TO R)HIP INTACT. IV TO R)OUTER FA INFUSING IV FLUIDS WITHOUT COMPLICATIONS. IV TO L)ARM SALINE LOCKED. HAS DENIED ANY NEED FOR PAIN MEDICATION. FAMILY HAS BEEN AT BEDSIDE MOST OF THE AFTERNOON. Follow up: CONTINUE TO MONITOR
--- NOTE | 2016-12-01 17:17 | NUR ---
ROUTINE CONSULT FOR CVA DIET ED NOTED. WILL COMPLETE APPROPRIATE PRIOR TO DISMISSAL.
--- NOTE | 2016-12-02 04:23 | NUR ---
Significant Event: PATIENT IS ALERT AND ORIENTED X3. FOLLOWS COMMANDS. PERRLA. NIHSS-1 WEAK TO MODERATE STRENGTH. LEFT FOOT HAS CHRONIC N/T. SLIGHT BLURRED VISION. DENIES PAIN UNLESS WHEN ROLLED. SR- 2+ PULSES. ROOM AIR. REGULAR DIET-PASSING FLATUS- LAST BM 12/02-ACTIVE X4. 2A-BEDREST TQ2H. MEPILEX TO RIGHT HIP- C/D/I. ABDUCTOR WEDGE IN PLACE. PIV TO R) FA INFUSING NS AT 75- L) FA SL'D. TAKES PILLS WHOLE WITH WATER. Follow up: [facility].
--- NOTE | 2016-12-02 08:00 | NUR ---
Jaimee from [facility] called. Unsure about transfer today at this point. 0810 Faxed updated to [facility]. [address] [facility] consult. She would rather go to [facility] then [facility]. [address] [facility]. Can accept tomorrow at 0900. Update patient, Dr Mccarty, Charge Nurse Jaimee García at [facility], called off EMS, phoned her grandson Ronni #[phone]. Orders on chart, started a packet and note placed on chart. 1630 Spoke to patients nurse, patient in a-fib may have to postpone discharge. She is calling the doctor, all doctors aware of discharge tomorrow she reports.
--- NOTE | 2016-12-02 11:23 | NUR ---
PT SCREENED D/T LOS. EST NEEDS: 5625-4014 KCALS, 54-65 GM PROTEIN, 1 ML/KCAL FLUIDS. INTAKE IS ADEQUATE. PT NOT APPROPRIATE FOR CVA DIET ED D/T ADVANCED AGE AND WILL BE DISCHARGING TO SNF. NO NUTRITION-RELATED DX IDENTIFIED. WILL ASSIST NEEDED.
--- NOTE | 2016-12-02 15:10 | NUR ---
Significant Event: Patient alert and oriented x3. Pupils 2mm, brisk. Chronic N/T reported to L) foot. Distorted vision reported to both eyes. NIHSS= 2. Patient flipped back into rapid a fib at 1150. notified. Digoxin and lopressor given, rates still rapid several hours later. Amio gtt started per protocol. All other VSS on room air. Voids per commode. Mepilex to R) hip, intact. Vaseline gauze and gauze to L) ankle, intact. Hip abductor pillow in place. IV to L) wrist, saline locked. IV to R) FA infusing amio gtt and NS at TKO. Patient is a 1 assist to get up. Follow up:
--- NOTE | 2016-12-03 04:31 | NUR ---
Significant Event: A0X3. PUPILS 2MM/BRISK. CHRONIC N/T TO L)FOOT. NIHSS=1. PT WAS IN AFIB AT BEGINNING OF SHIFT BUT FLIPPED BACK TO SR/BRADYCARDIA AROUND 0100. AMIODARONE GTT RUNNING IN THE L) WRIST AT 0.5. IV TO R) FA WAS D/C'd BY PATIENT. VOIDS PER COMMODE OR BEDPAN. 1 ASSIST. MEPILEX TO R)HIP. C/D/I. VASELINE GAUZE AND GAUZE TO L)ANKLE, INTACT. HIP ABDUCTOR PILLOW IN PLACE.
[2016-12-03 06:09] LABS: HEMATOCRIT 24.2 % (30.0-46.0); HEMOGLOBIN 8.1 g/dL (10.0-15.0)
--- NOTE | 2016-12-03 08:15 | NUR ---
Called [facility] and spoke to Raquel, patient on drip so not going to [facility] today. Called [facility] and let them know, someone else already had. 0835 Missed call from Vannessa on [facility], will try to take tomorrow. 1025 Followed up with patient. She stated not to bother her family, she will update them.
--- NOTE | 2016-12-03 17:19 | NUR ---
Significant Event: PT A&Ox3, FAC, and NIHSS 1. PT has a slight visual deficit R) peripheral field. CSM WNL except L) LE numbness. CROFT with limited flexion in the R) LE. LS clear on RA. Denies pain throughout the day, but has expressed being tired this afternoon; refuses OT. Currently infusing amioderone gtt at 0.5mg/min. Amioderone PO started today 200mg BID. Metoprolol changed to 25mg PO BID; hold for HR<50 and SBP<100. Follow up: Plan for tomorrow BMP, EKG, and possible transfer to [facility].
--- NOTE | 2016-12-04 04:27 | NUR ---
Significant Event: ALERT/ORIENTED X3. GENERALIZED WEAKNESS. NIHSS 1 FOR RIGHT SIDED VISUAL FIELD DEFICIT. MOVES RIGHT LEG TO COMMAND WITH SLIGHT WEAKNESS, WIGGLES TOES, DORSIFLEXION, PLANTAR FLEXION. 2+ EDEMA TO R LEG. AMIODORONE GTT D/C'D AT BEGINNING OF SHIFT. CONVERTED TO AFIB SHORTLY AFTER, CARDIZEM GTT STARTED. CURRENTLY AT 5MG/HR. HR 70S-90S, SBP 100S-110S. 96-97% RA, LUNGS CLEAR. HIP ABDUCTOR PILLOW. NO BM, VOIDS PER BEDPAN. NPO SINCE MIDNIGHT. Follow up:
[2016-12-04 06:19] LABS: ANION GAP 11.2 (10.0-19.0); CALCIUM 8.1 mg/dL (8.5-10.5); CREATININE 0.6 mg/dL (0.5-1.1); POTASSIUM 3.2 mMol/L (3.7-5.1)
--- NOTE | 2016-12-04 13:36 | NUR ---
Significant Event:PT IS AAOX3. NIHSS 1 DUE TO R) VISION. HAS CHRONIC NUMBNESS AND TINLING TO LEFT LEG. EQUAL STRENGTH IN UPPER EXT. CLEAR LUNG SOUNDS ON RA. +1 EDEMA TO R) LEG. ACTIVE BS. UP 1A GB WALKER. DRSG TO R) HIP. L) FOREARM RED AND HARD FROM IV INFILTRATE. R) FA IV SL'D. CONVERTED INTO AFIB AT 1209. INCREASE FREQUENCY OF METOPROLOL. CONVERTED TO NSR AT 1325. PT EXPERIENCED NO SYMPTOMS. Follow up:[facility] TOMORROW
--- NOTE | 2016-12-05 03:57 | NUR ---
Significant Event: A/Ox3. Denies N/T. Right lower extremity slightly weaker. Stroke Scale 1. In Sinus rhythm entire shift. SBPs in 100s-120s. Heart rate 50s-60s. Afebrile. Lungs clear an diminished on room air. Turned off Cardizeme at 0530 on 12/04/16. In Sinus rhythm since 1330 on . Mepilex dressing to right hip. Left wrist IV saline locked. Hip abductor on when in bed. Follow up:[facility] today?
[2016-12-05 05:32] LABS: HEMATOCRIT 25.3 % (30.0-46.0); HEMOGLOBIN 8.2 g/dL (10.0-15.0)
[2016-12-05 05:48] LABS: ANION GAP 7.1 (10.0-19.0); CALCIUM 8.2 mg/dL (8.5-10.5); CREATININE 0.6 mg/dL (0.5-1.1); POTASSIUM 4.1 mMol/L (3.7-5.1)
--- NOTE | 2016-12-05 08:15 | NUR ---
Spoke to [facility] ORTIZ and [facility]ERNON about discharging today. No needs from me.
--- NOTE | 2016-12-05 08:27 | NUR ---
Significant Event: 86 year old female. Full code. multiple allergies. Admitted to [facility] on 11/27 s/p fall at home. Lives in [facility] alone. Fall resulted in right hip fx. Surgery on 11/[address] goncalves. a/o x 3. denies pain. mepilex dsg to right hip C/D/I. trace edema/PPP. denies numbness/tingling. Did have some new onset episodes of afib post surgery starting 01/01 and is now in normal sinus rhythm (was sinus diego last night with HR of 54) taking metoprolol and amiodarone. takes meds whole. regular diet. WBAT. Ambulates with walker/gait belt and one assist. when patient fell at home she did end up with an abrasion/red area to left anterior ankle. Allevyn applied this am and can be removed in 3 days and reassessed for need for dsg. Also on 01/01 stroke was diagosed with worsening visual deficit resulting. NIHSS=1 at this time.
== END 2016-12-05 11:18 | DRG 469 ==
LOC: G3N 13:34 → GICU 12-01 13:51
PROVIDERS: Internal Medicine; Internal Medicine Interventional Cardiology; Nurse Practitioner Family; Orthopaedic Surgery Adult Reconstructive Orthopaedic Surgery; ADMIT Family Medicine
PROC: 0SRR01Z Replacement of Right Hip Joint, Femoral Surface with Metal Synthetic Substitute, Open Approach (ICD-10-PCS; principal; 2016-11-28)
PROC: B246ZZZ Ultrasonography of Right and Left Heart (ICD-10-PCS; 2016-12-01)
DX: S72.001A Fracture of unspecified part of neck of right femur, initial encounter for closed fracture (principal); I63.532 Cerebral infarction due to unspecified occlusion or stenosis of left posterior cerebral artery; I48.0 Paroxysmal atrial fibrillation; D62 Acute posthemorrhagic anemia; E03.9 Hypothyroidism, unspecified; G43.909 Migraine, unspecified, not intractable, without status migrainosus; I10 Essential (primary) hypertension; E78.5 Hyperlipidemia, unspecified; E79.0 Hyperuricemia without signs of inflammatory arthritis and tophaceous disease; M15.9 Polyosteoarthritis, unspecified; M48.06 Spinal stenosis, lumbar region; M81.0 Age-related osteoporosis without current pathological fracture; W19.XXXA Unspecified fall, initial encounter
CPT/HCPCS: A9270; C1776; J0282; J0690; J1160; J1650; J1885; J2001; J2250; J2405; J3010; J7030; J7040; J7050; J7060

== ENCOUNTER 2016-12-05 11:19 | Inpatient (IN) | payer MEDICARE, BC ==
[~2016-12-05] VITALS: Ht 152.4 cm; Wt 60.4 kg
--- NOTE | ~2016-12-05 | CON ---
PATIENT'S NAME: MARTA PERALTA [facility] AGE: 86 Y [address] ROOM: [address] [place], [place] [address] LOCATION: [facility] ADMIT DATE: 12/05/2016 Consultation DISCHARGE DATE: 12/20/2016 FAMILY PHYSICIAN: Evelyn Lira MD ATTENDING PHYSICIAN: Jd Farias DATE OF CONSULTATION: 12/17/2016 REFERRING PHYSICIAN: Bryson Herman MD TEAM MEMBERS REPORTING: Dr. Farias; Vannessa Altamirano, social organization professor; inpatient rehab nursing staff; Etta Zavala, PT; Karina Manley, PT; Joann Roque, OT; Shara Jacome, Speech Therapy; Jessie Drake, therapeutic rec; and sister Kath Aguilera, Pastoral Care. CURRENT STATUS: Marta is an 86-year-old woman admitted to our inpatient rehab unit following a right hip fracture. After surgery for her right hip fracture, she was noted to have a stroke. The patient is continent of bowel and bladder. No skin issues. Incisions are healing nicely. Takes Smilax twice a day. The patient is on a regular diet, currently at low nutritional risk. She can complete all of her transfers at standby. She can ambulate 150 feet at standby and she can climb four stairs at standby. She does need cues. The patient can dress her upper and lower body at standby; grooming, standby; bathing, minimal assistance; toilet transfer, standby; toileting, standby; shower transfers, contact guard assistance. Home management tasks are currently at standby assistance. The patient does have overall poor safety awareness. She has met 3/13 long-term OT goals. The patient's car transfers are currently at standby assistance. She does have hip precautions. The patient is not active in taoism, planning to do family training with daughter who is going to be staying with her. DISCHARGE PLAN: The patient is receiving 3 hours of PT, OT Friday through Friday. The patient has daily rehab, nursing, and physiatry involvement as well as therapeutic recreational services. The patient has shown functional improvement and is progressing. Please see her plan of care for specific goals. Plan is for patient to discharge on Tuesday, December 20, 2016. Plan is for the patient to return to home with her daughter in [place], [place]. The patient will have outpatient therapy services. VANNESSA ALTAMIRANO FOR JD FARIAS MD PATIENT'S NAME: MARTA PERALTA [facility] AGE: 86 Y [address] ROOM: [address] [address] LOCATION: [facility] ADMIT DATE: 12/05/2016 Consultation DISCHARGE DATE: 12/20/2016 FAMILY PHYSICIAN: Evelyn Lira MD ATTENDING PHYSICIAN: Jd Farias TD/billyl /[id number] d: 12/31/16 0010 t: 01/13/17 1129, CONSULTATION REPORT
--- NOTE | ~2016-12-05 | CON ---
PATIENT'S NAME: MARTA DE LA CRUZ [facility] AGE: 86 Y [address] ROOM: [address] [place], [place] [address] LOCATION: [facility] ADMIT DATE: 12/05/2016 Consultation DISCHARGE DATE: 12/20/2016 FAMILY PHYSICIAN: Evelyn Lira MD ATTENDING PHYSICIAN: Jd Farias DATE OF CONSULTATION: 12/10/2016 REFERRING PHYSICIAN: Bryson Herman MD TEAM MEMBERS REPORTING: Dr. Farias; Vannessa Altamirano, social director; inpatient rehab nursing staff; Etta Zavala, PT; Karina Manley, PT; Joann Roque, OT; Shara Jacome, Speech Therapy; Jessie Drake, therapeutic rec; and sister Kath Aguilera, [facility] Care. CURRENT STATUS: Marta De La Cruz is an 86-year-old woman, admitted to our inpatient rehab unit on December 05, 2016, following a right hip fracture and a CVA that was noted following the right hip fracture repair. The patient is currently continent of bowel and bladder. She has dressings to her right hip. She is on a regular diet. Currently at low nutritional risk. She can transfer sit to supine and supine to sit at standby; sit to stand and stand to sit, standby assistance; bed to chair and chair to bed, contact guard assistance. She can walk 150 feet with a front-wheeled walker at contact guard assistance. She can climb 4 stairs with 2 railings at contact guard assistance and cues. Her goals have been set for standby assistance to modified independence. She can dress her upper and lower body at standby; grooming, standby; bathing, minimal assistance; toilet transfers, standby assistance; toileting, standby assistance; shower transfers, contact guard assistance; feeding, standby assistance. Her goals have been set for modified independence for OT. Comprehension and language expression are mod I. Memory and problem solving, mod I. Car transfers have not been done yet. The patient has not been active in her quaker. DISCHARGE PLAN: The patient is receiving 3 hours of PT, OT, and speech Friday through Friday. The patient has daily rehab, nursing, and physiatry involvement as well as therapeutic rec services. The patient has shown functional improvement and is progressing. Please see her plan of care for specific goals. Plan is for patient to discharge in approximately 7 days. Plan is for patient to return to home. The patient's daughter plans to come to stay with her for a while to transition her back to home. PATIENT'S NAME: MARTA DE LA CRUZ [facility] AGE: 86 Y [address] ROOM: [place] [address] LOCATION: [facility] ADMIT DATE: 12/05/2016 Consultation DISCHARGE DATE: 12/20/2016 FAMILY PHYSICIAN: Evelyn Lira MD ATTENDING PHYSICIAN: Jd Farias VANNESSA ALTAMIRANO FOR JD FARIAS MD TD/modl /[id number] d: 12/30/16 2345 t: 01/13/17 1127, CONSULTATION REPORT
--- NOTE | ~2016-12-05 | HP ---
PATIENT'S NAME: ROBERT PERALTA [facility] AGE: 86 Y [address] ROOM: [place] [address] LOCATION: [facility] ADMIT DATE: 12/05/2016 History & Physical DISCHARGE DATE: FAMILY PHYSICIAN: Evelyn Lira MD ATTENDING PHYSICIAN: Jd Hopper DATE OF SERVICE: HISTORY OF PRESENT ILLNESS: This pleasant 86-year-old lady is admitted to rehab unit at [facility] on 12/05/2016. 1. Unstable gait. 2. Dependent in activities of daily self-care. 3. Status post right hip fracture. 4. Right displaced femoral neck fracture for which she underwent right hip hemiarthroplasty on 11/28/2016. This was secondary to a falling incident when her pet tripped her, and she fell. She lives alone, and she has 5 children; however, her daughter, who lives in [place], will come and help her when she is out, as much as I could understand. She is giving past history as followin. Gout with gouty arthritis. 2. Hypertension, essential. 3. Hypothyroidism. 4. Dyslipidemia. 5. Generalized osteoarthritis. 6. Spinal stenosis with chronic back pain, status post lumbar epidural steroid injection. SOCIAL HISTORY: She does not smoke or drink, and she was active before this. Now, she is alert, oriented x3. ALLERGIES: SHE IS ALLERGIC TO SHELLFISH, CRESTOR, AND INDOCIN. ALSO, SHE IS ALLERGIC TO NONSTEROIDAL ANTIINFLAMMATORY MEDICATION. PAST MEDICAL HISTORY: Past history of significance as follows: 1. Hypertension. 2. Dyslipidemia. 3. Osteoporosis. 4. Gout with gouty arthritis. PATIENT'S NAME: ROBERT PERALTA [facility] AGE: 86 Y [address] ROOM: [address] [address] LOCATION: [facility] ADMIT DATE: 12/05/2016 History & Physical DISCHARGE DATE: FAMILY PHYSICIAN: Evelyn Lira MD ATTENDING PHYSICIAN: Jd Hopper 5. Hypothyroid. 6. Spinal stenosis, status post injection to relieve low back pain. PHYSICAL EXAMINATION: VITAL SIGNS: Blood pressure 157/70, temperature 97.9, pulse 71, and respiration rate 12. She is 5 feet tall and weighs 54.4 kg. GENERAL: She is, at the present time, alert, oriented, able to follow instructions. HEENT: Head: Normocephalic. Cranial nerves 2 through 12 are within normal limits. NECK: Supple. Trachea is central. CHEST: Moving equally and regularly. LUNGS: Clinically clear. HEART: Regular sinus rhythm at the present time. She had tachycardia at one time and was followed by a hospitalist. ABDOMEN: Soft. No organomegaly or tenderness. EXTREMITIES: Bilateral upper and lower extremities present. She is still having some difficulty with her hip secondary to pain. She rates her pain about 5. The best she could walk is 15 feet x2 with front-wheeled walker and contact guard assistance. She is transferring at the present time with minimum assistance. Can sit on the edge of bed for about 15 minutes with contact guard assistance of one. Her pain in the right hip remains at 5/10 with ambulation. To start with, she is on weightbearing as tolerated, hip dislocation precautions per protocol. MEDICATIONS: She is on the following medications: 1. Zyloprim 300 mg p.o. daily. 2. Cordarone or Pacerone 200 mg p.o. twice daily. 3. Vitamin C 500 mg daily. 4. Aspirin 81 mg p.o. daily, stop when Eliquis started. 5. Lipitor 40 mg p.o. daily. 6. Os-Luis 500 mg p.o. daily. 7. Vitamin D 400 units p.o. daily. 8. Vitamin B12 at 500 mcg p.o. daily. PATIENT'S NAME: ROBERT PERALTA [facility] AGE: 86 Y [address] ROOM: [address] [address] LOCATION: [facility] ADMIT DATE: 12/05/2016 History & Physical DISCHARGE DATE: FAMILY PHYSICIAN: Evelyn Lira MD ATTENDING PHYSICIAN: Jd Hopper 9. Lovenox 40 mg subcu at 0800, stop when Eliquis started. 10. Levothyroxine 25 mcg p.o. daily. 11. Vitamin A 10,000 units p.o. daily. 12. Vitamin E 400 p.o. daily. 13. Tylenol Extra Strength 500 to 1000 p.o. q.6 hours, do not exceed acetaminophen 4 g q.24 hours. 14. [place] 5/325 one to two tablets p.o. q.4 hours, again do not exceed acetaminophen 4 g q.24 hours. 15. Milk of magnesia 30 mL p.o. p.r.n. as needed. 16. Metoprolol 50 mg p.o. twice daily, hold if heart rate less than 50 and systolic blood pressure less than 100. 17. Systane eye drops one drop each eye twice daily in dry eyes. 18. Eliquis 500 mg p.o. twice daily, starting on 12/08/[address] scan is okay on 12/07. ASSESSMENT AND PLAN: We will put on intensive PT and OT 3 hours per day, 15 hours per week, for about 2 weeks, aiming to discharge home on modified independence. We will send in a.m. for urinalysis with reflex microscopy. CBC with automated differential. CMS. Prealbumin. We will keep on hospitalist and Dr. Lara, neurologist, and Dr. Murry, orthopod, to follow as necessary. All the above was explained to her in detail. She verbalized understanding and agreement with plan of care. MD ENEDINA HANS/modl /[id number] D: [id number] T: [id number] HISTORY & PHYSICAL
--- NOTE | ~2016-12-05 | DS ---
PATIENT'S NAME: ROBERT PERALTA [facility] AGE: 86 Y [address] ROOM: [id number] [place] [address] LOCATION: [facility] ADMIT DATE: 12/05/2016 Discharge Summary DISCHARGE DATE: FAMILY PHYSICIAN: Evelyn Lira MD ATTENDING PHYSICIAN: Jd Farias This 86-year-old lady was admitted to Rehab Unit at [facility] on 12/05/2016, is discharged on 12/20/2016. 1. Unstable gait. 2. Dependent activities of daily self-care. 3. Status post right hemiarthroplasty on 11/18/2016 with status post right hip fracture, secondary to a falling incident. She is at the present time doing well, alert, oriented x3, is at the present time with the following vitals: Blood pressure 145/79, temperature 97.8, pulse 58, and respiratory rate of 16. She is able to ambulate 100 feet x1 and 200 feet x1 with front-wheeled walker and standby assistance. She will continue on outpatient basis 2 times per week for the coming 4 weeks. PT and OT script given. She should not drive and/or operate any mechanical or electrical device until she is reevaluated. She will follow with me in about [address] Murry as he sees fit. She is on the following medications: 1. Zyloprim 300 mg p.o. daily. 2. Cordarone 200 mg twice daily p.o. 3. Eliquis 5 mg twice daily. 4. Teargen 1 GTT eye both eyes twice daily. 5. Vitamin C 500 mg daily. 6. Lipitor 40 mg p.o. daily. 7. Os-Luis 500 mg p.o. daily. 8. Vitamin D 400 mg p.o. daily. 9. Vitamin B12 500 mcg p.o. daily. 10. Levothroid 25 mcg p.o. daily. 11. Lopressor 50 mg p.o. b.i.d. 12. Vitamin A 10,000 units everyday. 13. Vitamin E 400 mg p.o. daily. 14. Tylenol Extra Strength 500 to 1000 q.6 h., do not exceed acetaminophen 4 g in q.24 h., give 36 of them. PATIENT'S NAME: ROBERT PERALTA [facility] AGE: 86 Y [address] ROOM: [id number] [place] [address] LOCATION: [facility] ADMIT DATE: 12/05/2016 Discharge Summary DISCHARGE DATE: FAMILY PHYSICIAN: Evelyn Lira MD ATTENDING PHYSICIAN: Jd Farias 15. [place] 5/325 one p.o. q.4 h., 36 of them, and do not exceed acetaminophen 4 g q.24 h. again. 16. Milk of mag 30 mL p.o. daily p.r.n. FINAL DIAGNOSES: 1. Unstable gait. 2. Dependent activities of daily self-care. 3. Status post right hip fracture, status post hemiarthroplasty on 11/28/2016. 4. Gout with gouty arthritis. 5. Osteoarthritis. 6. Hypothyroid. 7. Hypertension. 8. Dyslipidemia. 9. Coronary artery disease. 10. History of spinal stenosis low back with epidural injection for pain control. She should not drive and/or operate any mechanical device until she is reevaluated. Follow up with me in 4 weeks. Follow up with Dr. Murry as he sees fit. Must follow with her family physician as soon as possible and all her medication renewal and/or change through her family physician. All the above was explained to her in detail. She verbalized understanding and agreement with plan of care. JD FARIAS MD WMS/modl /[id number] d: 12/20/16 0301 t: 12/20/16 0726, DISCHARGE SUMMARY
[~2016-12-05 11:19] MED LIST: ASCORBIC ACID500 MG PO; FISH OIL 1,0001 EACH PO; LEVOTHROID (SY25 MCG PO; OSCAL500 MG PO; POTASSIUM99 M1 PO; PRINIVIL (ZESTR20 MG PO; RED YEAST RICE600 MG PO; TENORMIN50 MG PO; VITAMIN A10000 UNIT PO; VITAMIN B-12500 MCG PO; VITAMIN D-40400 UNIT PO; VITAMIN E400 UNI2 PO; ZYLOPRIM300 MG PO
[2016-12-05 13:43] LABS: BILIRUBIN URINE NEGATIVE (NEGATIVE); BLOOD URINE NEGATIVE /UL (NEGATIVE); COLOR URINE YELLOW (YELLOW); GLUCOSE URINE NEGATIVE (NEGATIVE); KETONE URINE NEGATIVE (NEGATIVE); LEUKOCYTES URINE NEGATIVE /UL (NEGATIVE); NITRITE URINE NEGATIVE (NEGATIVE); PH URINE 6.5 (4.0-8.0); PROTEIN URINE NEGATIVE (NEGATIVE); SPEC GRAVITY URINE 1.005 (1.003-1.035); TURBIDITY URINE CLEAR (CLEAR); UROBILINOGEN URINE NORMAL (NORMAL)
--- NOTE | 2016-12-05 16:25 | NUR ---
1125 Pt, 86 year old Fe admitted per wheel chair to [facility]. Wt done per wheel chair. Accompanied by JASMINA Jaimes, and transport team. Pt alert and orientated x 3, good historian, and good recall. Pt reports she did not fall, she has a cat that was trying to get out, and she just threw herself on it to stop it, she reports she has done this before, and got cat, but this time fx her right hip. Pt drug her self into the kitchen to call for help, @ which time she also has a dime size abrasion on left outer ankle which has a alevyn on. Right hip incision covered with Mepix dressing, to be changed by Dr Kwon. Pt did have a BM this am before transfer, reports pain meds have affected her bowel some while here. Reports no problems with urination. Pt takes meds whole. Reports had stroke with some Bilateral vision deficeit. Pt to have hip abductor on when in bed, used a pillow while in recliner to remind her to not cross legs. SL lock right arm intact and patent. Left forarm red and swollen from infiltration from previous IV site. Pt had A Fib prior on previous unit., but is now NSR, with occasional irregular beat. Pt slt [place], no hearing aides. Teeth own teeth, she reports good condition. Transfers 1 assist with walker. Pt has been pleasant and cooperative with plan of care.
--- NOTE | 2016-12-06 03:29 | NUR ---
Significant Event: Patient is alert and oriented, VSS. Has been having issues with A Fib was on a Cardizem drip prior to admission yesterday. Is now getting Amniodorone BID and Lopressor QID with parameters, which has keep her in SR. Has had a CVA with bilateral visual deficits. Patient states it is getting better. Has had right hip replacement, Dr Murry has ordered an abductor pillow when laying in bed or in recliner. Incision to her right hip with mepilex intact not to be removed until F/U. Has an Alleven to her Left ankle had an abrasion during her fall when she broke her hip. Saline lock to her L) FA. UA has been aquired. Not much c/o of pain but will take 1 Canmer if needed. Is [place]. Uses her call light appropriatly. Takes meds whole. Follow up:
[2016-12-06 05:27] LABS: BASOPHIL % 0.4 %; EOSINOPHIL # 0.2 K/uL (0.0-0.5); EOSINOPHIL % 4.5 %; HEMOGLOBIN 8.6 g/dL (10.0-15.0); IMMATURE GRANULOCYTE % 0.4 %; LYMPHOCYTE # 1.2 K/uL (0.8-4.0); LYMPHOCYTE % 26.3 %; MCH 32.6 pg (27.0-34.0); MCHC 33.1 gm/dL (32.0-36.5); MCV 98.5 fl (83.0-98.0); MONOCYTE # 0.4 K/uL (0.0-1.0); MPV 9.2 fl (9.4-12.4); NEUTROPHIL # (ANC) 2.8 K/uL (1.8-7.8); NEUTROPHIL % 60.4 %; NRBC % 0 /100WBC (0-0.00); RBC 2.64 M/uL (3.00-5.00); RDW-CV 13.5 % (11.9-14.6); WBC 4.6 K/uL (4.0-11.0)
[2016-12-06 05:30] LABS: PLATELET COUNT 225 K/uL (150-450)
[2016-12-06 05:50] LABS: ALBUMIN 2.3 gm/dL (3.5-5.0); ANION GAP 9.3 (10.0-19.0); CALCIUM 8.9 mg/dL (8.5-10.5); CREATININE 0.6 mg/dL (0.5-1.1); POTASSIUM 4.3 mMol/L (3.7-5.1); TOTAL BILIRUBIN 0.6 mg/dL (0.0-1.5); TOTAL PROTEIN 5.6 g/dL (6.0-8.4)
--- NOTE | 2016-12-06 08:30 | NUR ---
D: Therapeutic Recreation Initial Assessment on the 12/06/16. I: Patient seen for 2 units at 833 to begin initial evaluation. Pt has dx R) hip fx with hip precautions. R: Patient's current living situation and status: house in town Home entrance steps: 2 Living with: alone Spouses name: # of children: 5 none close Driving: yes, friends can provide transportation Ambulating: I Equipment: has cane only when going outdoors in winter Hand Dominance: Right Headwaiter/Headwaitress strength: not tested Eye sight: glasses, reports problems with vision Reading ability: reports problems Hearing: no problem Speech: clear Cognition: impaired Comprehension: fair Following directions: yes Initiating: yes Eye contact: good Affect: bright COMMUNITY INVOLVEMENT: grocery shopping, out to eat, visit family/friends, travel, art galleries, Library LEISURE INTERESTS: 5 cats (all indoors), read (books, newspaper, magazines), crossword puzzles, word puzzles, watch TV, sodoku Patient is referred by medical staff for treatment and evaluation in the following areas: Community Skills, Functional Leisure Skills, Participation, Leisure Education/Behaviors, Family Education, Cognitive, Emotional. Information obtained: Interview, Chart Review, Observation, other. BARRIERS TO LEISURE: Physical, Transportation Patient determined to be: APPROPRIATE FOR THERAPEUTIC RECREATION ASSESSMENT. TREATMENT WILL INCLUDE: Community living skills training Functional leisure development Physical skills development Cognitive skills development Social skills development Leisure education Emotional/behavioral adaptation Family education Community resources/packet TARGET EQUIPMENT/INFORMATION: Parking Permit TO ASSESS NEED Community Resources Energy conservation in community setting Van/Service/Taxi Scrip Adapted Leisure Equipment Stress management/Relaxation techniques Functional car transfers Leisure Education Behaviors: Attitude, Awareness, Participation. Patient functional skills level and potential: Good, pt demonstrates fair mobility but concerns for coping/pain and safety per pt's report. Patient oriented ot TR services on Rehab unit. Pt/family provided input into goals setting and plan of care. Pt's goal is to return home and drive again. P: Target date set with personal goals established. Will continue with POC focusing on pt/family training and education. For additional information please see Nursing Data Base, PT, OT, CM, ST, initial assessments to GIRP and Interdisciplinary Assessments.
--- NOTE | 2016-12-06 15:44 | NUR ---
A&O. 1PA. PAIN MEDS TYLENOL X1 NORCO X1. HTN. R HIP MEPILEX DSG CDI. ABDUCTOR PILLOW. HOH. BONE TO LLE. L FA SL ASHWIN THERAPIES WELL
--- NOTE | 2016-12-07 04:11 | NUR ---
Significant Event: A&Ox3, VSS on room air. Dressings to Right hip/leg C/D/I. Abductor pillow when in bed and resting. Transfers well with 1PA walker/GB to bathroom. [place], 2 tabs, for pain at HS. Relief noted. Equal strength in all exremties. Patient rested well. Follow up:
--- NOTE | 2016-12-07 13:09 | NUR ---
Significant Event:Abductor pillow in place while pt is in bed, dislocation precautions for right hip repair. Request pain meds as needed, note MAR. R hip dressing to be changed every 3 days, Sun. Hart to LLE ankle from fall prior to admission, intact. No changed in assessment, note charting. Pt has been pleasant and cooperative with plan of care. Follow up:pain control, dressings right hip, right hip dislocations precautions.
--- NOTE | 2016-12-08 04:25 | NUR ---
Significant Event: Alert/oriented x3. VSS on room air. CSM WNL. Dressing to right hip C/D/I. Bilateral foot pumps. Pillow between legs while in bed. 1 assist transfers using walker and gait belt. Allevyn to left ankle from fall prior to admission, intact. 1 Brewer at 0106 for pain 09/11, was sleeping at reassessment. Has slept most of night since 2200. Follow up: Pain control, hip dislocation precautions, dressings
--- NOTE | 2016-12-08 16:59 | NUR ---
Significant Event: Alert and oriented x 3. Up with 1A walker and gait belt. Denies pain. Pillow between legs while in bed. Hip precautions. Eliquis started today. Lovenox D/C. Allevyn to LLE ankle from fall. Intact. CSM WNL. Dressing to right hip C/D/I. Cooperative with cares. Follow up:
--- NOTE | 2016-12-09 04:41 | NUR ---
Significant Event: Alert and oriented X3. Hard of hearing. Vital signs stable. Eliquis ID'd at HS, lovenox and ASA dc'd. Edema noted to RLE. Abductor pillow between legs while in bed. Mepilex dressing to R) hip is CDI. Transferred to bathroom with SBA, gait belt and walker. Minimal assistance required moving out of bed and toileting, hip precautions reminders given. Allevyn dressing present to L) ankle, is CDI. Had benjamin last at 1715. Denies need for pain medication. Follow up:
--- NOTE | 2016-12-09 09:28 | NUR ---
A-SCREENED D/T LOS; [facility])HIP FX ADMIT WT (W/C SCALE): 52.9 KG; 8/5 WT (STANDING SCALE): 61.8 KG. THIS IS A 8.9 KG (19.5 LB) WT DIFFERENCE X 2 DAYS. WILL USE STANDING SCALE WT FOR NUTRIENT NEED CALCULATIONS, IT IS MOST LIKELY THE MOST ACCURATE. HT: 60 IN. BMI: 26.56 LABS: NA 139, K+ 4.3, GLU 102, BUN 10, EDGE CUTTER 0.6, ALB 2.3, PREALB 11.0. LOW PREALB TO BE EXPECTED W/RECENT FALL AND HIP FX REPAIR DIET RX: REGULAR. PO INTAKE 75-100%. PT IS CHOOSING A VARIETY OF FOODS. EST NUTR NEEDS: 6759-7208 KCALS (25-30 KCALS/KG) 62-74 GM PROTEIN (1.0-1.2 GM/KG) 1 ML FLUID/KCAL D-NOT AT NUTRITION RISK; NO NUTRITION DX IDENTIFIED I-CONTINUE W/CURRENT DIET RX M/E-WILL ASSIST NEEDED
--- NOTE | 2016-12-09 12:20 | NUR ---
Significant Event:Pt alert and orientated x 3, expresses needs well. Up with 1 assist, walker/gait belt. Requests pain meds as needed. Abductor pillow between legs, hip dislocation precaution. Right hip dressing, and left ankle dressing intact. Assessment unchanged from Sat. note charting. Takes meds whole, few @ a time. Albers given for pain @ noon, note MAR charting. Pt has been pleasant and cooperative with plan of care. Follow up:jeffrey control, abductor pillow between legs/hip dislocation precautions.
--- NOTE | 2016-12-09 17:58 | NUR ---
Pt grandson came to visit her this afternoon, he brought in her jewlery, which was 8 bracelets silver, with a variety of turqouise/coral stones on them, she had 4 on each wrist. And 8 rings silver and turquoise and coral stones, 4 on each hand. Also her watch is on the right wrist. Requested pain med Kelly 2 tabs given @ 0715.
--- NOTE | 2016-12-10 03:37 | NUR ---
Significant Event: A/O x 3. dressing to rt hip and left ankle d/i. csm adequate to rt foot. denies n/t. edema to rt lower extremity. had 2 norco at 2150 for anticipated pain. up to bathroom with walker and 1 assist, slightly unsteady gait. Follow up:
--- NOTE | 2016-12-10 13:28 | NUR ---
Significant Event: HIP PILLOW TO BE APPLIED WHEN IN BED. UP 1 ASSIST, WALKER, GAIT BELT. TOLERATES ACTIVITY WELL. ALERT AND ORIENTED X3. NORCO FOR PAIN PRN. MEPILEX INTACT TO RIGHT HIP, ALLEVYN TO LEFT ANKLE. VITALS STABLE ON ROOM AIR, ALERT AND ORIENTED X3. CALLS APPROPRIATELY. MEDS WHOLE WITH WATER. CALLS APPROPRIATELY. CONTINENT OF BOWEL AND BLADDER. Follow up:
--- NOTE | 2016-12-10 16:20 | NUR ---
D: TR progress note for 12/10/16. I: Pt seen for 2 units at 902 for leisure education, motor skills, cognitive task, coping skills and visual scanning. R: Pt seen for functional skills building working on motor skills, scanning coordination and coping skills doing past leisure task of word searches to increase independence with scanning, attention to task and motor skills. Task was adapted to assist with possible poor visual scanning by limiting choices to 25 words in square. Pt easily completed task without difficulty demonstrating fair > good motor skills and coordination noted when circling or eliminating words. Pt able to read each word independently, completed scanning equally R)/L) and remained on task without cues with bright affect and good social initiation. P: Will continue to see to address goals and plan of care.
--- NOTE | 2016-12-11 03:33 | NUR ---
Significant Event: A/O x3. up with 1 assist and walker. unsteady gait. edema to rt lower extremity. dressing to right hip and lt ankle d/i. abductor between legs while in bed. norco 2 tabs given at hs for anticiopated pain, reports only has been when walks. cooperative with cares. takes meds whole with water. Follow up:
--- NOTE | 2016-12-11 16:14 | NUR ---
Significant Event:PATIENT ALERT AND ORIENTED, IS FORGETFUL AT TIMES. VSS. TRANSFERS WITH 1 ASSIST, GAIT BELT AND WALKER. HIP ABDUCTOR PILLOW IN PLACE WHEN IN BED. HAS DENIED PAIN WHEN AT REST. DOES COMPLAIN OF PAIN WHEN UP MOVING. GIVEN NORCO 2 TABS PO THIS AM AT 0827. TOLERATING THERAPY WELL. RESTS IN RECLINER WHEN NOT IN THERAPY. NO OTHER COMPLAINTS. Follow up:
--- NOTE | 2016-12-12 02:35 | NUR ---
Significant Event: Pt alert and oriented x3. Cooperative with cares. VSS. RA. PT is one assist with walker and gaitbelt. dressing to right hip and ankle, C/D/I. denies any pain for me at this time. abductor pillow in place while in bed. takes meds whole in apple sauce. Follow up:
--- NOTE | 2016-12-12 12:33 | NUR ---
D: TR progress note for 12/1016. I: Pt seen for 3 units at 930 for community integration skills building, functional transfers, and safety awareness. R: Pt seen for functional skills building working on mobility, safety, endurance and functional transfers in anticipation for discharge back into community with family. Pt given visual demonstration and verbal instructions on proper technique for car transfers prior to pt completing them. Pt transferred sit > stand from WC CGA, ambulated with walker 5 feet to/from vehicle CGA and transferred in/out of vehicle CGA with verbal cue to [facility] hip precations and for hand placement. Pt was SBA > CGA for BLE management and positioning of self with seat surface adapted using cushion and trash bag to ease task. Pt tolerated ride with no C/o pain, discomfort or problems with nausea. P: Will continue to see to address goals and plan of care.
--- NOTE | 2016-12-12 15:22 | NUR ---
Significant Event:PATIENT ALERT AND ORIENTED THIS SHIFT. VSS. TRANSFERS WITH 1 ASSIST, GAIT BELT AND WALKER. USES ABDUCTOR PILLOW WHEN IN BED. TAKES NORCO 2 TABS PO PRIOR TO THERAPY THIS AM. GIVEN AT 0717. DENIES PAIN WHEN AT REST. DRESSING TO RIGHT HIP INTACT. DR CHEN NOTIFIED OF PATIENT FOLLOW UP NEEDED AT 2 WEEKS PER HIS ORDERS WHEN SHE TRANSFERRED HERE. HE WAS IN SURGERY TODAY AND WILL COME SEE HER TOMORROW. NO OTHER COMPLAINTS. Follow up:
--- NOTE | 2016-12-13 04:08 | NUR ---
Significant Event: A&Ox3, VSS on room air. Transfers with SBA walker/GB to bathroom. Dressing to right hip, C/D/I. Dr. Hargrove to see today. Abductor pillow applied while in bed. Patient demonstrates proper hip percautions with all transfers and while in bed. Last BM on 12/10/16. Rested well, denied pain. Follow up:
--- NOTE | 2016-12-13 15:15 | NUR ---
Significant Event: Alert and oriented x 3. Up with 1A walker and gait belt. Cameron given x 2. Last at 1308 for pain to right hip. Dressing to right hip removed by Dima Stoll this afternoon. Open to air. Okay to shower just no soaking. Hip precautions. Follows very well. Last BM on the . Cooperative with cares. Follow up:
--- NOTE | 2016-12-14 03:25 | NUR ---
Significant Event: Patient is alert and oriented. VSS. Up one assist with GB/Walker. Has had no c/o of pain t/o the shift. On hip precautions with abductor on when in bed. Dressing was removed yesterday by Dima Stoll. Area well approximated with no redness. Also has an Alleven to her left ankle, changed last night no wound noted but the area is red and sore. No BM since the 8th was given MOM this AM. Takes meds whole with water. Follow up:
--- NOTE | 2016-12-14 16:00 | NUR ---
Significant Event:PATIENT ALERT AND ORIENTED THIS SHIFT. VSS. TRANSFERS WITH 1 ASSIST, GAIT BELT AND WALKER. HAS DONE HER HIP PRECAUTIONS ALL SHIFT. GIVEN NORCO 2 TABS PO THIS AM FOR PAIN AT 0809 PER REQUEST. DID HAVE AN EPISODE JUST BEFORE LUNCH WHEN SHE WAS ON HER WAY BACK FROM THERAPY WHERE SHE GOT NAUSEATED SUDDENLY AND HAD AN EMESIS IN THE TRASH CAN. WAS FLUSHED. BP WAS ELEVATED WHEN THIS HAPPENED BUT AFTER RESTING FOR ABOUT 15 MINUTES HER BP WAS BACK DOWN AFTER RESTING. GIVEN CRACKERS AND SIPPED ON HER PEPSI. DID EAT LUNCH AFTER AWHILE AND TOLERATED ALL OF IT WITHOUT DIFFICULTY. NO OTHER COMPLAINTS. Follow up:
--- NOTE | 2016-12-15 04:01 | NUR ---
Significant Event:Patient alert and oriented, VSS. Up one SBA with GB/walker. Gait mostly steady. Is able to do own cares in BR. Rests in bed with pillow between her legs refuses the abductor and is asking when her hip precautions will be over. Dressing was removed from her hip o Friday. Denies pain or discomfort most of the time but just could not get comfortable last night. Asked for a Robbins at 0030 then again at 0318. Was assisted to lay on her side with a pillow between her legs and ice placed on her hip for comfort. Takes meds whole with water. No further issues with N/V t/o the night SBP have been <110. Follow up:
--- NOTE | 2016-12-15 16:42 | NUR ---
Significant Event:PATIENT ALERT AND ORIENTED THIS SHIFT. VSS. TRANSFERS WITH 1 ASSIST, GAIT BELT AND WALKER. COMPLAINTS OF PAIN THIS AM. TOOK 2 NORCO AT 0954. RESTED IN BED MOST OF THE DAY. USES HIP PRECAUTIONS WELL. ALLEVYN TO LEFT ANKLE REMAINS INTACT. HAS SOME VISITORS TODAY. NO OTHER COMPLAINTS. Follow up:
--- NOTE | 2016-12-16 03:10 | NUR ---
Significant Event: Patient is alert and oriented, VSS. Up one assist with GB/Walker. Gait is slightly unsteady. Cintinues on hip precautions and has asked nursing when the precautions will be lifted. Dressing/ gena to her right hip were removed on Friday incision is well approximated no redness. Alleven dressing to her left ankle area is slightly red and sore looking but no further abrasion is present. Does c/o of aching to her hip at rest and pain with therapy. Took 2 Hurricane at bedtime for the achyness. Takes meds whole with water. Follow up: Labs this morning.
[2016-12-16 05:49] LABS: BASOPHIL # 0.1 K/uL (0.0-0.2); BASOPHIL % 1.2 %; EOSINOPHIL # 0.1 K/uL (0.0-0.5); EOSINOPHIL % 3.4 %; HEMATOCRIT 31.3 % (30.0-46.0); HEMOGLOBIN 9.9 g/dL (10.0-15.0); IMMATURE GRANULOCYTE % 0.5 %; LYMPHOCYTE # 1.5 K/uL (0.8-4.0); LYMPHOCYTE % 36.4 %; MCH 32.4 pg (27.0-34.0); MCHC 31.6 gm/dL (32.0-36.5); MCV 102.3 fl (83.0-98.0); MONOCYTE # 0.3 K/uL (0.0-1.0); MONOCYTE % 7.4 %; MPV 9.2 fl (9.4-12.4); NEUTROPHIL # (ANC) 2.1 K/uL (1.8-7.8); NEUTROPHIL % 51.1 %; NRBC % 0 /100WBC (0-0.00); PLATELET COUNT 317 K/uL (150-450); RBC 3.06 M/uL (3.00-5.00); RDW-CV 15.3 % (11.9-14.6); WBC 4.1 K/uL (4.0-11.0)
[2016-12-16 06:13] LABS: ALBUMIN 3.1 gm/dL (3.5-5.0); ANION GAP 10.9 (10.0-19.0); CALCIUM 8.9 mg/dL (8.5-10.5); CREATININE 0.8 mg/dL (0.5-1.1); POTASSIUM 3.9 mMol/L (3.7-5.1); TOTAL BILIRUBIN 0.5 mg/dL (0.0-1.5); TOTAL PROTEIN 6.9 g/dL (6.0-8.4)
--- NOTE | 2016-12-16 10:43 | NUR ---
A-NUTRITION F/U CBW (12/14) STANDING SCALE: 60.4 KG 12/16 LABS: GLU 113, ALB 3.1, PREALB 22.0. PREALB UP FROM 11 NO NEW MEDS DIET RX: REGULAR. PO INTAKE 100% SINCE LAST F/U D-NOT AT NUTRITION RISK; NO NUTRITION DX IDENTIFIED I-CONTINUE W/CURRENT DIET RX M/E-F/U PO INTAKE, WT, AND POC IN 7-10 DAYS
--- NOTE | 2016-12-16 10:48 | NUR ---
[facility] Case Management Prefunctioning and Psycho-Social Initial Assessment for 12/05/16 and Case Conference Note for 12/10/16 D: Initial Plastic Boat PatcherHelp Desk Technician and Case Conference Note. I: Input from: patient, family, Dr. Hopper, Vannessa GARCIAW R: Reason for admission: right hip fracture. Left stroke. Admission Date to [facility]: 12/05/16 Admission Date to Hospital: 11/27/16 Prior level of functioning: patient was independent with adl's prior to hospitalization. Prior living situation: one story house with basement. Financial resources/expectations: patient has Medicare and BC/BS. Resources used: cane Resources available: HHC, outpatient therapy, SNF, [facility], [facility], DME. Family support available: children. Understands nature of health condition: yes Recognizes impact of health condition on lifestyle: yes Vocational/Educational: retired Behavior/Emotional needs: cues for safety. Monitor for signs and symptoms of depression and anxiety. Legal concerns: none. Discharge goal: home with support Assessment: Marta is an 86 year old woman from [place], [place]. Has good family support. Plan is for patient to d/c in approx. 7-10 days. Daughter coming to stay with patient for awhile. Will follow and assist as needed. Orientation to the program and CM services completed with Marta. Initial plan of care and estimated length of stay discussed, disclosure statement reviewed including patient assessment rights. P: Target date and individual goals established. Please see POC for details. For additional information please see Nursing Data Base, PT, OT, TR, ST, Initial assessments to [facility].
--- NOTE | 2016-12-16 15:06 | NUR ---
Pt is alert and oriented to person, plae and time. Pt is a standby assist. Pt has denied pain this shift. Pt has worked with therapy and tolerated activity. Pt has voiced no needs or complaints this shift.
--- NOTE | 2016-12-17 14:45 | NUR ---
D: TR progress note for 12/17/16. I: Pt seen for 2 units at 1230 for community integration skills building, functional transfers, and safety awareness. R: Pt seen for functional skills building working on mobility, safety, functional transfers and community skills in anticipation for discharge back into community with family. Pt transferred sit > stand from EOB SBA, ambulated with walker 4 feet to WC SBA and transferred into WC SBA with cues for safety. Pt transferred sit > stand from WC SBA, ambulated 4 feet with walker to/from vehicle SBA and transferred in/out of vehicle SBA with good recall on hand placement. Pt was SBA for BLE management and positioning of self with seat surface adapted using trash bag to ease task. Pt tolerated ride with no C/o pain, discomfort or problems with nausea, verbalized enjoyment of session with good functional communication skills. P: Will continue to see to address goals and plan of care.
--- NOTE | 2016-12-17 16:10 | NUR ---
Significant Event:PATIENT ALERT AND ORIENTED THIS SHIFT. VSS. TRANSFERS WITH SBA AND GAIT BELT. DENIED PAIN FIRST THIS AM. LATER COMPLAINED OF PAIN AND GIVEN 2 NORCO AT 1558. NEEDS OCCASIONALLY REMINDED OF HIP PRECAUTIONS. DOES GET FORGETFUL AT TIMES. SOMETIMES WANTS TO JUST GET ON HER OWN AND NEEDS REMINDED TO CALL FOR HELP. READS AND RESTS IN BED BETWEEN THERAPIES. NO OTHER COMPLAINTS. Follow up:
--- NOTE | 2016-12-18 02:56 | NUR ---
Significant Event: PATIENT IS ALERT AND ORIENTED. VSS. UP X1 ASSIST WITH WALKER AND GAIT BELT. HAS NORCO AVAILABLE FOR PAIN. Follow up:
--- NOTE | 2016-12-18 11:57 | NUR ---
D: TR progress note for 12/18/16. I: Pt seen for 2 units at 1100 in group session for education on safety when around pets/animals, functional transfers, leisure education and coping strategies. R: Pt seen for functional skills building working on relaxation techniques, stress/pain management, and continued education on coping skills using animals during Animal Assisted Therapy to increase safety awareness when around pets. Pt transferred sit > stand from EOB SBA pivoted to/from to WC with walker SBA and transferred in/out of WC SBA with cues for safety. Pt completed functional communication skills independently which included personal introduction self and about own pet cats (5). Pt was mod I for handling/maneuvering animals utilizing BUE with good interaction with staff/volunteers. Education done on safety with ambulation/mobility in homes when around animals, safety with possibility of poor skin integrity and utilizing pets to assist with coping and stress/pain management when opportunity available. P: Will continue to see to address goals and plan of care.
--- NOTE | 2016-12-18 14:41 | NUR ---
Significant Event: Alert and oriented x 3. Up with 1A walker and gait belt. [place] given at 0657 for pain to right hip. Hip precautions. Pillow between legs when in bed. Cooperative with cares. Follow up:
--- NOTE | 2016-12-19 04:25 | NUR ---
Significant Event: Patient is alert and oriented, VSS. Up one assist with GB/walker, gait slightly unsteady. Continues on hip precautions, but does not like the abductor uses a pillow between her knees. Incision to her right hip healing well. Alleyvn to her left ankle. Takes norco at bedtime for general discomfort. Takes meds whole with water. Follow up:
--- NOTE | 2016-12-19 12:55 | NUR ---
D: TR progress note for 12/19/16. I: Pt seen for 2 units at 1225 for community integration skills building, functional transfers, and safety awareness. R: Pt seen for functional skills building working on mobility, safety, functional transfers and community skills in anticipation for discharge back into community with family. Pt transferred sit > stand from EOB mod I, ambulated with walker 4 feet to WC SBA and transferred into WC mod I. Pt transferred sit > stand from WC SBA, ambulated 4 feet with walker to/from vehicle SBA and transferred in/out of vehicle SBA with cues for hand placement. Pt was SBA for BLE management and positioning of self with seat surface adapted using trash bag to ease task, discussed safety concerns and family training. P: Will discharge home tomorrow, 12/19/16.
[2016-12-19] MEDS ORDERED: CORDARONE,PACE200 MG PO (13:14)
[2016-12-19] MEDS ORDERED: ELIQUIS5 MG PO (13:21)
[2016-12-19] MEDS ORDERED: LIPITOR40 MG PO (13:25)
[2016-12-19] MEDS ORDERED: ARTIFICIAL TEA1 EACH OPHTH (13:27)
[2016-12-19] MEDS ORDERED: LOPRESSOR50 MG PO (13:31)
[2016-12-19] MEDS ORDERED: ACETAMINOPHEN500 M1 PO (13:35)
[2016-12-19] MEDS ORDERED: NORCO 5-325 TA1 EACH PO (13:37)
[2016-12-19] MEDS ORDERED: MILK OF MA400 MG/5 M PO (13:41)
--- NOTE | 2016-12-19 15:17 | NUR ---
Pt is alert oriented to perosn place and time. Pt is pleasant with staff and cares. PT is a stand by assist with ambulation and cares. There are plans to discharge her in the AM. Pt took norco in anticipation of pain working with pt this AM, and c/o pain 5/10 at 1500 and receivied 2 additional norco. Pt has tolerated actility and voices no other needs or complaints this shift.
--- NOTE | 2016-12-20 04:05 | NUR ---
Significant Event: PATIENT IS ALERT AND ORIENTED. VSS. UP ONE SBA WITH GB/WALKER. TAKES MEDS WHOLE WITH WATER. TOOK 2 NORCO AT BEDTIME. CONTINUES ON HIP PRECAUTIONS, DOES NOT LIKE THE ABDUCTOR USES A PILLOW BETWEEN HER KNEES. IS COMPLIANT WITH THE PRECAUTIONS. ALLEYVN WAS REMOVED FROM HER LEFT ANKLE AREA IS HEALED. PATIENT HAS BEEN QUESTIONING IF SHE NEEDS TO TAKE HER B/P BEFORE SHE TAKES HE B/P MEDS AND ALSO IF SHE IS GONG HOME ON THE HIP PRECATIONS. Follow up: HOME TODAY.
--- NOTE | 2016-12-20 11:18 | NUR ---
D: Marketing Secretary Team Conference Follow up for 12/17/16 and Discharge Note not for 12/20/16 I: Input from patient/family R: Met with: patient, family, Vannessa Fletcher MANAGER DAIRY Discussed rehab plan, patient progress, discharge plan and estimated length of stay of discharge planned on 12/20/16. Patient/Family Preference: patient and daughter are in agreement. Anticipated discharge disposition: home with assistance of daughter and outpatient therapy. Education completed: Education was completed with patient regarding length of stay, progress in therapy and d/c plan. Assessment/Recommendation: Team recommends d/c on 12/20/16. P: Case Coordination: Daughter will be here for training on 12/20/16. Then, patient will d/c after lunch. Patient's son ordered equipment from [employer]. No other needs identified. Will call patient next week to see how she is doing post discharge.
--- NOTE | 2016-12-20 16:20 | NUR ---
Significant Event:PATIENT ALERT AND ORIENTED THIS SHIFT. VSS. TRANSFERS WITH 1 ASSIST GAIT BELT AND WALKER. IS FORGETFUL. COMPLAINTS OF HIP PAIN ONLY WHEN TRANSFERRING. GIVEN NORCO 2 TABS PO AT 1100. WANTED TO HAVE SOME BEFORE DISCHARGE. DC INSTRUCTIONS REVIEWED WITH PATIENT AND HER DAUGHTER. VERBALIZES UNDERSTANDING. DC TO HOME VIA PRIVATE VEHICLE. TO FRONT ENTRANCE VIA WHEELCHAIR. NO OTHER COMPLAINTS. Follow up:
== END 2016-12-20 12:45 | disposition disaster alternative care site (69) | DRG 560 ==
LOC: GIRP 11:19
PROVIDERS: ADMIT Physical Medicine & Rehabilitation
DX: S72.001D Fracture of unspecified part of neck of right femur, subsequent encounter for closed fracture with routine healing (principal); D62 Acute posthemorrhagic anemia; I48.0 Paroxysmal atrial fibrillation; I10 Essential (primary) hypertension; M10.9 Gout, unspecified; E03.9 Hypothyroidism, unspecified; E78.5 Hyperlipidemia, unspecified; M15.9 Polyosteoarthritis, unspecified; Z74.1 Need for assistance with personal care; M81.0 Age-related osteoporosis without current pathological fracture; M48.00 Spinal stenosis, site unspecified; Z79.01 Long term (current) use of anticoagulants; Z91.81 History of falling; I25.10 Atherosclerotic heart disease of native coronary artery without angina pectoris; R26.81 Unsteadiness on feet; M48.06 Spinal stenosis, lumbar region; G89.29 Other chronic pain; Z86.73 Personal history of transient ischemic attack (TIA), and cerebral infarction without residual deficits
CPT/HCPCS: A9270; J1650